=== PATIENT | male | born 1985 | race Caucasian/White ===

== ENCOUNTER 2022-02-11 09:59 | Inpatient (IN) | payer BC ==
--- NOTE | 2022-02-11 10:29 | ED ---
SOB HPI - General Chief Complaint: Shortness of Breath Stated Complaint: SOB Time Seen by Provider: 02/11/22 10:17 Source: patient, RN notes reviewed Mode of arrival: ambulatory Limitations: no limitations - History of Present Illness Initial Comments: This is a 36-year-old male who presents to the emergency department for shortness of breath. Symptoms have been present for the last 2-3 weeks. States that this has been occurring intermittently. Symptoms are worse with exertion. Also reports a cough and fevers at 102 Fahrenheit. Reports pain in the epigastric region. Denies any history of similar symptoms in the past. He also denies any sick contacts. He has no history of respiratory illnesses such as asthma or COPD and he denies any smoking history. Denies any sore throat, palpitations, abdominal pain, nausea, vomiting, diarr hea, back pain, or headaches. MD Complaint: shortness of breath, cough, chest pain Onset/Timin -: week(s) - Related Data Home Medications Medication Instructions Recorded Confirmed No Known Home Medications 02/11/22 02/11/22 Allergies Allergy/AdvReac Type Severity Reaction Status Date / Time No Known Allergies Allergy Verified 02/11/22 11:13 Review of Systems ROS Statement: Those systems with pertinent positive or pertinent negative responses have been documented in the HPI. ROS Other: All systems not noted in ROS Statement are negative. Past Medical History Past Medical History: No Reported History History of Any Multi-Drug Resistant Organisms: None Reported Past Surgical History: No Surgical Hx Reported Past Psychological History: No Psychological Hx Reported Smoking Status: Vaper Past Alcohol Use History: Occasional Past Drug Use History: Marijuana General Exam Limitations: no limitations General appearance: alert, in no apparent distress Head exam: Present: atraumatic, normocephalic, normal inspection Respiratory exam: Present: normal lung sounds bilaterally. Absent: respiratory distress, wheezes, rales, rhonchi, stridor, chest wall tenderness Cardiovascular Exam: Present: normal rhythm, tachycardia GI/Abdominal exam: Present: soft, normal bowel sounds. Absent: distended, tenderness, guarding, rebound, rigid Neurological exam: Present: alert, oriented X3, CN II-XII intact Psychiatric exam: Present: normal affect, normal mood Skin exam: Present: warm, dry, intact, normal color. Absent: rash Course Vital Signs 02/11/22 02/11/22 10:11 11:19 Temperature 98 F Pulse Rate 107 H 48 L Respiratory 20 16 Rate Blood Pressure 118/95 103/56 O2 Sat by Pulse 99 95 Oximetry Medical Decision Making - Medical Decision Making This is a 36-year-old male who presents to the emergency department for shortness of breath. Lab work reveals an elevated d-dimer, elevated troponin, elevated BNP, and elevated liver enzymes. Chest x-ray obtained, and on my interpretation there is no evidence of localized consolidations or infiltrates. Due to the elevated d-dimer, CTA of the chest was subsequently obtained. My interpretation of the CT angiogram reveals bilateral pulmonary emboli. The radiologist is not able to visualize any CT evidence of right heart strain. They do also make note of borderline cardiomegaly and possible developing CHF/pulmonary vascular congestion. There is also questionable thinning of the apical inferior right ventricular wall and nodularity that may represent promine nt trabeculae carneae. Patient was started on high intensity heparin protocol and admitted to medicine with cardiology, pulmonology, and vascular consult. This case was discussed in detail with the attending ED physician. Presentation, findings, and treatment plan discussed in detail as well. - Lab Data Result diagrams: 02/11/22 11:16 02/11/22 11:16 Lab Results 02/11/22 02/11/22 02/11/22 Range/Units 11:16 11:16 11:16 WBC 9.4 (3.8-10.6) k/uL RBC 4.52 (4.30-5.90) m/uL Hgb 14.3 (13.0-17.5) gm/dL Hct 41.9 (39.0-53.0) % MCV 92.8 (80.0-100.0) fL MCH 31.6 (25.0-35.0) pg MCHC 34.0 (31.0-37.0) g/dL RDW 13.5 (11.5-15.5) % Plt Count 214 (150-450) k/uL MPV 9.8 Neutrophils % 73 % Lymphocytes % 18 % Monocytes % 6 % Eosinophils % 1 % Basophils % 1 % Neutrophils # 6.9 (1.3-7.7) k/uL Lymphocytes # 1.7 (1.0-4.8) k/uL Monocytes # 0.5 (0-1.0) k/uL Eosinophils # 0.1 (0-0.7) k/uL Basophils # 0.1 (0-0.2) k/uL PT 13.7 H (9.0-12.0) sec INR 1.4 H (<1.2) APTT 23.0 (22.0-30.0) sec D-Dimer 9.41 H (<0.60) mg/L FEU Sodium 135 L (137-145) mmol/L Potassium 4.5 (3.5-5.1) mmol/L Chloride 109 H (98-107) mmol/L Carbon Dioxide 16 L (22-30) mmol/L Anion Gap 10 mmol/L BUN 21 H (9-20) mg/dL Creatinine 1.18 (0.66-1.25) mg/dL Est GFR (CKD-EPI)AfAm >90 (>60 ml/min/1.73 sqM) Est GFR (CKD-EPI)NonAf 80 (>60 ml/min/1.73 sqM) Glucose 99 (74-99) mg/dL Plasma Lactic Acid Arturo (0.7-2.0) mmol/L Calcium 9.0 (8.4-10.2) mg/dL Total Bilirubin 1.1 (0.2-1.3) mg/dL AST 230 H (17-59) U/L ALT 409 H (4-49) U/L Alkaline Phosphatase 78 (38-126) U/L Troponin I (0.000-0.034) ng/mL NT-Pro-B Natriuret Pep pg/mL Total Protein 6.4 (6.3-8.2) g/dL Albumin 3.5 (3.5-5.0) g/dL Coronavirus (PCR) (Not Detectd) Influenza Type A RNA (Not Detectd) Influenza Type B (PCR) (Not Detectd) 02/11/22 02/11/22 02/11/22 Range/Units 11:16 11:16 11:16 WBC (3.8-10.6) k/uL RBC (4.30-5.90) m/uL Hgb (13.0-17.5) gm/dL Hct (39.0-53.0) % MCV (80.0-100.0) fL MCH (25.0-35.0) pg MCHC (31.0-37.0) g/dL RDW (11.5-15.5) % Plt Count (150-450) k/uL MPV Neutrophils % % Lymphocytes % % Monocytes % % Eosinophils % % Basophils % % Neutrophils # (1.3-7.7) k/uL Lymphocytes # (1.0-4.8) k/uL Monocytes # (0-1.0) k/uL Eosinophils # (0-0.7) k/uL Basophils # (0-0.2) k/uL PT (9.0-12.0) sec INR (<1.2) APTT (22.0-30.0) sec D-Dimer (<0.60) mg/L FEU Sodium (137-145) mmol/L Potassium (3.5-5.1) mmol/L Chloride (98-107) mmol/L Carbon Dioxide (22-30) mmol/L Anion Gap mmol/L BUN (9-20) mg/dL Creatinine (0.66-1.25) mg/dL Est GFR (CKD-EPI)AfAm (>60 ml/min/1.73 sqM) Est GFR (CKD-EPI)NonAf (>60 ml/min/1.73 sqM) Glucose (74-99) mg/dL Plasma Lactic Acid Arturo 1.0 (0.7-2.0) mmol/L Calcium (8.4-10.2) mg/dL Total Bilirubin (0.2-1.3) mg/dL AST (17-59) U/L ALT (4-49) U/L Alkaline Phosphatase (38-126) U/L Troponin I 0.044 H* (0.000-0.034) ng/mL NT-Pro-B Natriuret Pep pg/mL Total Protein (6.3-8.2) g/dL Albumin (3.5-5.0) g/dL Coronavirus (PCR) (Not Detectd) Influenza Type A RNA Not Detected (Not Detectd) Influenza Type B (PCR) Not Detected (Not Detectd) 02/11/22 02/11/22 Range/Units 11:16 13:11 WBC (3.8-10.6) k/uL RBC (4.30-5.90) m/uL Hgb (13.0-17.5) gm/dL Hct (39.0-53.0) % MCV (80.0-100.0) fL MCH (25.0-35.0) pg MCHC (31.0-37.0) g/dL RDW (11.5-15.5) % Plt Count (150-450) k/uL MPV Neutrophils % % Lymphocytes % % Monocytes % % Eosinophils % % Basophils % % Neutrophils # (1.3-7.7) k/uL Lymphocytes # (1.0-4.8) k/uL Monocytes # (0-1.0) k/uL Eosinophils # (0-0.7) k/uL Basophils # (0-0.2) k/uL PT (9.0-12.0) sec INR (<1.2) APTT (22.0-30.0) sec D-Dimer (<0.60) mg/L FEU Sodium (137-145) mmol/L Potassium (3.5-5.1) mmol/L Chloride (98-107) mmol/L Carbon Dioxide (22-30) mmol/L Anion Gap mmol/L BUN (9-20) mg/dL Creatinine (0.66-1.25) mg/dL Est GFR (CKD-EPI)AfAm (>60 ml/min/1.73 sqM) Est GFR (CKD-EPI)NonAf (>60 ml/min/1.73 sqM) Glucose (74-99) mg/dL Plasma Lactic Acid Arturo (0.7-2.0) mmol/L Calcium (8.4-10.2) mg/dL Total Bilirubin (0.2-1.3) mg/dL AST (17-59) U/L ALT (4-49) U/L Alkaline Phosphatase (38-126) U/L Troponin I (0.000-0.034) ng/mL NT-Pro-B Natriuret Pep 9700 pg/mL Total Protein (6.3-8.2) g/dL Albumin (3.5-5.0) g/dL Coronavirus (PCR) Not Detected (Not Detectd) Influenza Type A RNA (Not Detectd) Influenza Type B (PCR) (Not Detectd) - EKG Data -: EKG Interpreted by Me EKG Comments: Sinus tachycardia with occasional PVCs, normal axis, ventricular rate 102 bpm, W[place] interval 181 ms, QRS duration 95 ms, QTC 425 ms. EKG interpreted by myself and attending ED physician, Dr. Valencia. - Radiology Data Radiology results: report reviewed, image reviewed Disposition Clinical Impression: Bilateral pulmonary embolism Disposition: ADMITTED IP TO THIS HOSP
[2022-02-11 11:30] LABS: Basophils # (A) 0.1 k/uL (0-0.2); Basophils % (A) 1 %; Eosinophils # (A) 0.1 k/uL (0-0.7); Eosinophils % (A) 1 %; HCT 41.9 % (39.0-53.0); HGB 14.3 gm/dL (13.0-17.5); Lymphocytes # (A) 1.7 k/uL (1.0-4.8); Lymphocytes % (A) 18 %; MCH 31.6 pg (25.0-35.0); MCV 92.8 fL (80.0-100.0); Mean Platelet Volume 9.8; Monocytes # (A) 0.5 k/uL (0-1.0); Monocytes % (A) 6 %; Neutrophils # (A) 6.9 k/uL (1.3-7.7); Neutrophils % (A) 73 %; Platelet Count 214 k/uL (150-450); RBC 4.52 m/uL (4.30-5.90); RDW 13.5 % (11.5-15.5); WBC 9.4 k/uL (3.8-10.6)
[2022-02-11 11:37] LABS: ALT 409 U/L (4-49); AST 230 U/L (17-59); African American GFR (CKD) >90 (>60 ml/min/1.73 sqM); Albumin 3.5 g/dL (3.5-5.0); Alkaline Phosphatase 78 U/L (38-126); Anion Gap 10 mmol/L; Blood Urea Nitrogen 21 mg/dL (9-20); Carbon Dioxide 16 mmol/L (22-30); Chloride 109 mmol/L (98-107); Glucose 99 mg/dL (74-99); Non-African American GFR(CKD) 80 (>60 ml/min/1.73 sqM); Potassium 4.5 mmol/L (3.5-5.1); Sodium 135 mmol/L (137-145); Total Bilirubin 1.1 mg/dL (0.2-1.3); Total Protein 6.4 g/dL (6.3-8.2)
--- NOTE | 2022-02-11 11:51 | XR ---
EXAMINATION TYPE: XR chest 2V DATE OF EXAM: 02/11/2022 COMPARISON: NONE HISTORY: Chest pain TECHNIQUE: Frontal and lateral views of the chest are obtained. FINDINGS: There is no focal air space opacity. No evidence for pneumothorax. No pleural effusion. The cardiac silhouette size is within normal limits. The osseous structures are grossly intact. IMPRESSION: 1. No acute cardiopulmonary process.
[2022-02-11 12:06] LABS: INR 1.4 (<1.2); Prothrombin Time 13.7 sec (9.0-12.0)
--- NOTE | 2022-02-11 13:15 | CT ---
EXAMINATION TYPE: CT chest angio for PE DATE OF EXAM: 02/11/2022 COMPARISON: Radiograph same day HISTORY: 36-year-old male chest pain, elevated d-dimer and troponin, SOB TECHNIQUE: Contiguous axial scanning of the chest performed with IV Contrast, patient injected with 1 00 mL of Isovue 300. Coronal/sagittal MIP reconstructions performed. CT DLP: 522.1 mGycm Automated exposure control for dose reduction was used. FINDINGS: Heart borderline in size. Prominent reflux of contrast into the hepatic veins. No flattening of the i nterventricular septum. Possible thinning of the apical inferior right ventricular wall. Nodularity h ere could represent prominent trabeculae carneae. Couple focal areas measuring 3.3 cm and 1.7 cm are noted on axial image 125. Aorta normal caliber with bovine configuration to the aortic arch. Prominent 1.5 cm right hilar lymph node. Otherwise, no thoracic lymphadenopathy. There is satisfactory opacification of the pulmonary arterial system. Emboli are present within dista l segmental and subsegmental branches of the basilar left lower lobe, axial image 91 through 115. Similar emboli in the right lower lobe. No large central or lobar branch pulmonary embolus. There appears to be a trace effusion on the right. Septal lines and mild groundglass in the lower [place]. Minimal scattered septal lines in the upper lungs as well. Nonspecific 5 mm medial right upper lobe pulmonary nodule, axial image 29 should be reassessed at [facility] low-up. Mild central interstitial thickening is noted. Irregular nodular density measuring 1.2 cm ant erior right midlung, axial image 84 should be reassessed at follow-up. Visualized upper abdomen shows no gross abnormality. Bones: Mild degenerative disc disease scattered throughout. No osseous destructive process. IMPRESSION: 1. EXAM POSITIVE FOR BILATERAL PULMONARY EMBOLI TO THE LOWER LOBES. THIS INVOLVES THE BASILAR DISTAL SEGMENTAL AND SUBSEGMENTAL BRANCHES, MILD OVERALL BURDEN. NO CT EVIDENCE FOR RIGHT HEART STRAIN. 2. HOWEVER, THERE IS BORDERLINE CARDIOMEGALY AND REFLUX OF CONTRAST INTO THE HEPATIC VEINS. CORRELATE FOR ELEVATED CARDIAC PRESSURES. 3. GIVEN SCATTERED SEPTAL LINES, CENTRAL INTERSTITIAL THICKENING, AND MILD BIBASILAR GROUNDGLASS WITH TRACE RIGHT EFFUSION, CORRELATE FOR DEVELOPING CHF/PULMONARY VASCULAR CONGESTION. 4. QUESTIONABLE THINNING OF THE APICAL INFERIOR RIGHT VENTRICULAR WALL. QUERY ANY HISTORY OF PRIOR IN FARCT. THERE IS SOME NODULARITY HERE MEASURING UP TO 3.3 CM THAT COULD REPRESENT PROMINENT TRABECULAE CARNEAE. IF THERE IS A HISTORY OF PRIOR INFERIOR WALL INFARCT, SOME INTRAVENTRICULAR THROMBUS IS ALS O A CONSIDERATION. Findings called to Dr. Fabian in the ER at 1:10 PM.
[2022-02-11] MEDS ORDERED: HEPARIN SODIUM 1,000 UN/ML (10ML VL) IV ONE (13:17)
[2022-02-11] MEDS ORDERED: HEPARIN SODIUM 1,000 UN/ML (10ML VL) IV PRN (13:17)
[2022-02-11] MEDS: HEPARIN SOD,PORK IN 0.45% NACL 25,000 UNIT in 0.45% NACL 1 250ML.BAG IV SCH (13:43)
[2022-02-11] MEDS ORDERED: IBUPROFEN 400 MG TAB PO PRN (13:46)
[2022-02-11] MEDS ORDERED: ONDANSETRON 4 MG/2 ML VIAL IVP PRN (13:46)
[2022-02-11] MEDS ORDERED: HYDROcodone/APAP 5-325MG 1 EACH TAB PO PRN (13:46)
[2022-02-11] MEDS ORDERED: oxyCODONE-APAP 5-325MG 1 EACH TAB PO PRN (13:46)
[2022-02-11] MEDS ORDERED: NALOXONE 0.4 MG/ML 1 ML VIAL IV PRN (13:46)
--- NOTE | 2022-02-11 15:09 | US ---
EXAMINATION TYPE: US venous doppler duplex LE BI DATE OF EXAM: 02/11/2022 3:01 PM COMPARISON: NONE CLINICAL HISTORY: leg swelling. SIDE PERFORMED: Bilateral TECHNIQUE: The lower extremity deep venous system is examined utilizing real time linear array sonog nikhil with graded compression, doppler sonography and color-flow sonography. VESSELS IMAGED: Common Femoral Vein Deep Femoral Vein Greater Saphenous Vein * Femoral Vein Popliteal Vein Small Saphenous Vein * Proximal Calf Veins (* superficial vessels) Right Leg: Negative for DVT Left Leg: Negative for DVT IMPRESSION: No evidence for DVT at this time.
--- NOTE | 2022-02-11 15:14 | US ---
EXAMINATION TYPE: US liver DATE OF EXAM: 02/11/2022 COMPARISON: NONE CLINICAL HISTORY: 36-year-old male Elevated liver enzymes TECHNIQUE: Multiple sonographic images of the right upper quadrant are obtained. FINDINGS: EXAM MEASUREMENTS: Liver Length: 19.7 cm Gallbladder Wall: 0.55 cm CBD: 0.17 cm Right Kidney: 9.5 x 3.8 x 4.4 cm Pancreas: Obscured by bowel gas. Only a small portion of the pancreatic neck is seen. Liver: Enlarged right lobe. Overall homogeneous appearance. Gallbladder: Thickened wall. No abnormal distention, surrounding fluid, or shadowing calculi are see n. Evidence for sonographic Ledezma's sign: No CBD: wnl Right Kidney: wnl IMPRESSION: 1. Mild hepatomegaly measuring 19.7 cm. However, overall ultrasound echotexture of the liver is norah l. If the patient has developing CHF, consider the possibility of some underlying congestive hepatopa thy. 2. Nonspecific gallbladder wall thickening. This could relate to fluid overload state or chronic chol ecystitis. 3. No biliary ductal dilatation.
--- NOTE | 2022-02-11 16:39 | P.CNPUL ---
History of Present Illness Consult date: 02/11/22 Requesting physician: Leonel Alfred Reason for consult: dyspnea, chest pain Chief complaint: Shortness of breath, chest pain History of present illness: This is a very pleasant 36-year-old male patient with no significant past medical history. No home medications. He presented here to the emergency room today with a 3 to four-week history of not feeling well. He had been noticing increasing shortness of breath and sharp epigastric and chest pain. He's developed a cough. No hemoptysis. 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 Chest x-ray revealed no acute cardiopulmonary process. CT angiogram is positive for bilateral pulmonary emboli to the lower lobes. This involves the basilar distal segmental and subsegmental branches. Mild overall burden. No CT evidence for right heart strain. There is borderline cardiomegaly and reflux of contrast into the hepatic veins. Correlate for elevated cardiac pressures. Given scattered septal lines, central interstitial thickening and mild bibasilar groundglass with trace right effusion, correlate for developing CHF/pulmonary vascular congestion. Questionable thinning of the apical inferior right ventricular wall. Possible prior infarct. Some nodularity measuring up to 3.3 cm that could represent prominent trabeculae carnea. Some intraventricular thrombus is also a consideration. Dopplers of the bilateral lower extremity were negative for DVT. Ultrasound of the liver revealed mild hepatomegaly. However, overall ultrasound echotexture of the liver is normal. White count 9.4. Hemoglobin 14.3. D-dimer 9.41. INR 1.4. Sodium 135. Potassium 4.5. BUN 21. Creatinine 1.18. AST 230. ALT 409. Troponin 0.044. ProBNP 9700. Pastor virus and influenza screen negative. Urgent echocardiogram had been ordered. Cardiology consult had been placed. Pulmonary was consulted as well. The patient is seen today in the emergency department. Currently resting comfortably on a stretcher. He is maintaining O2 saturations in the 90s on room air. He is slightly tachycardic. Hemodynamically stable. Denies any hemoptysis. Denies any injury. Denies any long travel. Does have a family history of PE and his father. He's been initiated on a heparin drip. Review of Systems REVIEW OF SYSTEMS: CONSTITUTIONAL: Denies any recent significant weight loss or weight gain. EYES: Denies change in vision. EARS, NOSE, MOUTH, THROAT: Denies headaches, denies sore throat. CARDIOVASCULAR: Positive for chest pain, no palpitations or syncopal episodes. RESPIRATORY: Positive for shortness of breath, no cough, congestion or hemop tysis. GASTROINTESTINAL: Denies change in appetite, denies abdominal pain GENITOURINARY: Denies hematuria, denies infections. MUSKULOSKELETAL: Denies pain, denies swelling. INTEGUMENTARY: Denies rash, denies eczema. NEUROLOGICAL: Denies recent memory loss, no recent seizure activity. PSYCHIATRIC: Denies anxiety, denies depression. HEMATOLOGIC/LYMPHATIC: Denies anemia, denies enlarged lymph nodes. Past Medical History Past Medical History: No Reported History History of Any Multi-Drug Resistant Organisms: None Reported Past Surgical History: No Surgical Hx Reported Past Psychological History: No Psychological Hx Reported Smoking Status: Vaper Past Alcohol Use History: Occasional Past Drug Use History: Marijuana Medications and Allergies Home Medications Medication Instructions Recorded Confirmed Type No Known Home Medications 02/11/22 02/11/22 History Allergies Allergy/AdvReac Type Severity Reaction Status Date / Time No Known Allergies Allergy Verified 02/11/22 11:13 Physical Exam Vitals: Vital Signs Temp Pulse Resp BP Pulse Ox 02/11/22 14:58 78 18 114/94 96 02/11/22 12:58 107 H 18 97 02/11/22 11:19 48 L 16 103/56 95 02/11/22 10:11 98 F 107 H 20 118/95 99 Intake and Output 02/11/22 02/11/22 02/11/22 06:59 14:59 22:59 Other: Weight 102.058 kg GENERAL EXAM: Alert, very pleasant 36-year-old male patient, on room air, fairly comfortable in no apparent distress. HEAD: Normocephalic. EYES: Normal reaction of pupils, equal size. NOSE: Clear with pink turbinates. THROAT: No erythema or exudates. NECK: No masses, no JVD. CHEST: No chest wall deformity. LUNGS: Equal air entry with no crackles, wheeze, rhonchi or dullness. CVS: S1 and S2 normal with no audible murmur, regular rhythm. ABDOMEN: No hepatosplenomegaly, normal bowel sounds, no guarding or rigidity. SPINE: No scoliosis or deformity SKIN: No rashes CENTRAL NERVOUS SYSTEM: No focal deficits, tone is normal in all 4 extremities. EXTREMITIES: There is no peripheral edema. No clubbing, no cyanosis. Peripheral pulses are intact. Results - Laboratory Findings CBC and BMP: 02/11/22 11:16 02/11/22 11:16 PT/INR, D-dimer PT 13.7 sec (9.0-12.0) H 02/11/22 11:16 INR 1.4 (<1.2) H 02/11/22 11:16 D-Dimer 9.41 mg/L FEU (<0.60) H 02/11/22 11:16 Abnormal lab findings: Abnormal Labs 02/11/22 02/11/22 02/11/22 11:16 11:16 11:16 PT 13.7 H INR 1.4 H D-Dimer 9.41 H Sodium 135 L Chloride 109 H Carbon Dioxide 16 L BUN 21 H AST 230 H ALT 409 H Troponin I 0.044 H* - Diagnostic Findings Chest x-ray: image reviewed CT scan - chest: image reviewed Assessment and Plan Assessment: Shortness of breath and chest pain secondary to bilateral pulmonary emboli. Non-provoked. Currently on a heparin drip. Computed tomography scan reveals bilateral pulmonary emboli to the lower lobes involving the basilar distal segmental and subsegmental branches. Mild overall burden. No evidence of right heart strain and CT. There is borderline cardiomegaly reflux of contrast and the hepatic veins. Correlate for elevated cardiac pressures. Scattered septal lines, central interstitial thickening and mild by basilar groundglass with trace right effusion, correlate for developing CHF/pulmonary vascular conges tion. Questionable thickening of the apical inferior right ventricular wall. Denies history of prior infarct. Some intraventricular thrombus is also a consideration. Doppler of lower extremities negative for DVT. Liver ultrasound with possible underlying congestive hepatopathy. Echocardiogram pending. Have mild troponin leak. ProBNP 9700. Family history of PE History of marijuana use, vaping Plan: The patient was seen and evaluated CAT scan, chest x-ray, medications and labs reviewed Continue on heparin drip Stat consult to cardiology, echo pending We will continue to follow and make further recommendations based on his clinical status I have personally seen and examined the patient, performed the documentation and the assessment and plan as written. Number of minutes spent on the visit: 20.
--- NOTE | 2022-02-11 18:14 | P.HPIM ---
History of Present Illness This is a pleasant 56 years old male with no significant past medical history Presents to day because of shortness of breath with some mild central chest pain, he has some occasional cough but no hemoptysis He denies any leg pain or swelling, he denies any other symptoms like nausea vomiting diarrhea, no abdominal pain, no urinary complaints. No headache or weakness or numbness. Patient denies cigarette smoking or alcohol, uses marijuana at times. As the patient if he has any family history of blood diseases and he denies. He was mildly tachypneic, saturating 95% on room air, resolved Vitas looks stable. CBC is unremarkable, d-dimer elevated 9.4, BMP is unremarkable. Has elevated liver enzymes to 30 AST and 409 ALT. Bilirubin is normal 1.1. Troponin elevated 0.04. ProBNP is 9700. Pastor virus and influenza virus is our and detected. CTA of the chest: Bilateral pulmonary emboli, no significant ST-T changes. EKG showing sinus tachycardia and 102, QTC which is 425 Review of Systems Review of systems CONSTITUTIONAL: No fever, no malaise, no fatigue. HEENT: No recent visual problems or hearing problems. Denied any sore throat. CARDIOVASCULAR: No orthopnea, PND, no palpitations, no syncope. PULMONARY: No chest wall tenderness, no hemoptysis. GASTROINTESTINAL: No diarrhea, no nausea, no vomiting, no abdominal pain. Normoactive bowel sounds. NEUROLOGICAL: No headaches, no weakness, no numbness. HEMATOLOGICAL: Denies any bleeding or petechiae. GENITOURINARY: Denies any burning micturition, frequency, or urgency. MUSCULOSKELETAL/RHEUMATOLOGICAL: Denies any joint pain, swelling, or any muscle pain. ENDOCRINE: Denies any polyuria or polydipsia. Past Medical History Past Medical History: No Reported History History of Any Multi-Drug Resistant Organisms: None Reported Past Surgical History: No Surgical Hx Reported Past Psychological History: No Psychological Hx Reported Smoking Status: Vaper Past Alcohol Use History: Occasional Past Drug Use History: Marijuana Medications and Allergies Home Medications Medication Instructions Recorded Confirmed Type No Known Home Medications 02/11/22 02/11/22 History Allergies Allergy/AdvReac Type Severity Reaction Status Date / Time No Known Allergies Allergy Verified 02/11/22 11:13 Physical Exam Vitals: Vital Signs Temp Pulse Resp BP Pulse Ox 02/11/22 11:19 48 L 16 103/56 95 02/11/22 10:11 98 F 107 H 20 118/95 99 Intake and Output 02/10/22 02/11/22 02/11/22 22:59 06:59 14:59 Other: Weight 102.058 kg GENERAL: The patient is alert and oriented x3, not in any acute distress. Well developed, well nourished. HEENT: Pupils are round and equally reacting to light. EOMI. No scleral icterus. No conjunctival pallor. Normocephalic, atraumatic. No pharyngeal erythema. No thyromegaly. CARDIOVASCULAR: S1 and S2 present. No murmurs, rubs, or gallops. PULMONARY: Chest is clear to auscultation, no wheezing or crackles. ABDOMEN: Soft, nontender, nondistended, normoactive bowel sounds. No palpable organomegaly. MUSCULOSKELETAL: No joint swelling or deformity. EXTREMITIES: No cyanosis, clubbing, or pedal edema. NEUROLOGICAL: Gross neurological examination did not reveal any focal deficits. SKIN: No rashes. no petechiae. Results CBC & Chem 7: 02/11/22 11:16 02/11/22 11:16 Labs: Abnormal Lab Results - Last 24 Hours (Table) 02/11/22 02/11/22 02/11/22 Range/Units 11:16 11:16 11:16 PT 13.7 H (9.0-12.0) sec INR 1.4 H (<1.2) D-Dimer 9.41 H (<0.60) mg/L FEU Sodium 135 L (137-145) mmol/L Chloride 109 H (98-107) mmol/L Carbon Dioxide 16 L (22-30) mmol/L BUN 21 H (9-20) mg/dL AST 230 H (17-59) U/L ALT 409 H (4-49) U/L Troponin I 0.044 H* (0.000-0.034) ng/mL Assessment and Plan Assessment: Bilateral pulmonary embolism Elevated troponin Transaminitis Mildly elevated troponin Plan: Continue with heparin drip Check ultrasound of the legs Check echocardiogram Vascular surgery, cardiology and pulmonary consult check liver ultrasound and hepatitis panel Labs and medication were reviewed.. Continue same treatment. Continue with symptomatic treatment. Resume home medication. Monitor labs and vitals. DVT and GI prophylaxis. Further recommendations as per clinical course of the patient DVT prophylaxis: heparin GI Prophylaxis: Pepcid Prognosis is guarded
[2022-02-11] MEDS ORDERED: FAMOTIDINE 20 MG/2 ML VIAL IV SCH (21:00)
[2022-02-11] MEDS: FAMOTIDINE 20 MG TAB PO SCH (21:04)
[2022-02-12] MEDS: HEPARIN SOD,PORK IN 0.45% NACL 25,000 UNIT in 0.45% NACL 1 250ML.BAG IV SCH ×2 (03:40→20:27)
--- NOTE | 2022-02-12 06:05 | CONS ---
CONSULTATION CHIEF COMPLAINT: Shortness of breath. HISTORY OF PRESENT ILLNESS: This is a 36-year-old gentleman, who presents to hospital with progressively worsening shortness of breath for the last 3 weeks and pleuritic chest pain for the last 1 day. He underwent evaluation and a CT scan showed bilateral pulmonary embolism without any evidence of RV strain. His coronavirus test is negative. BNP is elevated, D-dimer of course is elevated at 9.4. At the time of my evaluation, the patient is comfortable at rest, currently on IV heparin, tachycardic with some PVCs, but stable hemodynamically. PAST MEDICAL HISTORY: Negative for hypertension, diabetes, dyslipidemia. MEDICATIONS: None. ALLERGIES: None. FAMILY HISTORY: Negative for premature coronary artery disease. SOCIAL HISTORY: Negative for current smoking, EtOH abuse, or drug abuse. REVIEW OF SYSTEMS: HEENT: Unremarkable. CARDIAC: As described above. RESPIRATORY: As described above. GI: Negative. GENITOURINARY: Negative. ALLERGY/IMMUNOLOGY: Negative. SKIN: Negative. MUSCULOSKELETAL: Significant for arthritis. PSYCHOSOCIAL: Negative. DERM: Negative. CONSTITUTIONAL: Negative. ONCOLOGICAL: Negative. MOTION PICTURE ACTOR: Negative. PHYSICAL EXAMINATION: GENERAL: Comfortable at rest. VITAL SIGNS: Heart rate is 110 beats per minute, blood pressure is 130/90, respiratory rate is 18, O2 saturation is 98% on room air. NECK: There is no jugular venous distention. Carotid upstroke is normal. There is no bruit. CHEST: Reveals diminished air entry at the bases. HEART: Reveals first and second heart sounds. No gallop. No murmur. ABDOMEN: Soft, nontender. EXTREMITIES: Did not reveal any edema. Peripheral pulses are felt. ASSESSMENT: Shortness of breath secondary to bilateral pulmonary embolism. PLAN: The patient does not have any evidence of DVT, this is unprovoked thromboembolic event. His father had DVT following the surgery. We will continue heparin and switch him to Eliquis. I will obtain a 2D echo to assess the right ventricular abnormality noted on the CAT scan. MMODL / IJN: [id number] /
[2022-02-12 06:33] LABS: Basophils # (A) 0.1 k/uL (0-0.2); Basophils % (A) 1 %; Eosinophils # (A) 0.1 k/uL (0-0.7); Eosinophils % (A) 1 %; HCT 42.1 % (39.0-53.0); HGB 13.6 gm/dL (13.0-17.5); Hypochromasia Slight; Lymphocytes # (A) 2.3 k/uL (1.0-4.8); Lymphocytes % (A) 22 %; MCH 30.4 pg (25.0-35.0); MCHC 32.2 g/dL (31.0-37.0); MCV 94.2 fL (80.0-100.0); Mean Platelet Volume 9.4; Monocytes # (A) 0.7 k/uL (0-1.0); Monocytes % (A) 7 %; Neutrophils % (A) 67 %; Platelet Count 259 k/uL (150-450); RBC 4.47 m/uL (4.30-5.90); RDW 13.3 % (11.5-15.5); WBC 10.4 k/uL (3.8-10.6)
[2022-02-12 07:06] LABS: ALT 413 U/L (4-49); AST 264 U/L (17-59); African American GFR (CKD) >90 (>60 ml/min/1.73 sqM); Albumin 3.3 g/dL (3.5-5.0); Alkaline Phosphatase 85 U/L (38-126); Anion Gap 8 mmol/L; Bilirubin, Delta 0.5 mg/dL (0.0-0.2); Bilirubin,Unconjugated 0.7 mg/dL (0.0-1.1); Blood Urea Nitrogen 19 mg/dL (9-20); Calcium 8.4 mg/dL (8.4-10.2); Carbon Dioxide 18 mmol/L (22-30); Chloride 105 mmol/L (98-107); Glucose 105 mg/dL (74-99); Non-African American GFR(CKD) 79 (>60 ml/min/1.73 sqM); Potassium 4.4 mmol/L (3.5-5.1); Sodium 131 mmol/L (137-145); Total Bilirubin 1.2 mg/dL (0.2-1.3)
[2022-02-12] MEDS: FAMOTIDINE 20 MG TAB PO SCH ×2 (09:31→20:27)
--- NOTE | 2022-02-12 10:41 | CA ---
Transthoracic Echo Report Name: Aaron Guo Age: 36 Gender: M : 1985 Exam Date: 02/12/2022 08:34 Exam Location: [facility] Ht (in): 75 Wt (lb): 225 Ordering Physician: Jessica Henry Attending/Referring Phys: Insurance Licensing Supervisor Shannon Burgos RDCS Procedure CPT: Indications: PE, rule out RV strain Cardiac Hx: Technical Quality: Good Contrast 1: Total Dose (mL): Contrast 2: Total Dose (mL): MEASUREMENTS (Male / Female) Normal Values 2D ECHO LV Diastolic Diameter PLAX 6.4 cm 4.2 - 5.9 / 3.9 - 5.3 cm LV Systolic Diameter PLAX 5.8 cm IVS Diastolic Thickness 0.9 cm 0.6 - 1.0 / 0.6 - 0.9 cm LVPW Diastolic Thickness 1.2 cm 0.6 - 1.0 / 0.6 - 0.9 cm LV Relative Wall Thickness 0.3 RV Internal Dim ED PLAX 5.0 cm LA Systolic Diameter LX 4.4 cm 3.0 - 4.0 / 2.7 - 3.8 cm LA Volume 78.9 cm??? 18 - 58 / 22 - 52 cm??? M-MODE Aortic Root Diameter MM 3.2 cm MV E Point Septal Separation 1.9 cm AV Cusp Separation MM 2.1 cm DOPPLER AV Peak Velocity 61.1 cm/s AV Peak Gradient 1.5 mmHg MV Area PHT 5.2 cm??? MV Deceleration Time 132.0 ms TR Peak Velocity 263.8 cm/s TR Peak Gradient 27.8 mmHg Right Ventricular Systolic Press 40.0 mmHg FINDINGS Left Ventricle Mildly increased left ventricular diastolic diameter. Left ventricular ejection fraction is estimated at 15-20 %. Left ventricular wall thickness normal. Severely reduced global left ventricular systolic function. Left ventricular apical thrombus noted. Right Ventricle Severe right ventricular dilatation. Mild pulmonary hypertension. Right ventricular systolic pressure estimated at 40 mm hg. There is right ventricular enlargement consistent with right ventricular volume overload. Moderately reduced right ventricular global systolic function. There is a filling defect in the right ventricular apex raising the possibility of thrombus Right Atrium Normal right atrial size. Left Atrium Mildly increased left atrial diameter. Moderately increased left atrial volume. Mildly increased left atrial area. No evidence for an atrial septal defect. Mitral Valve Structurally normal mitral valve. Mild mitral regurgitation. Aortic Valve Trileaflet aortic valve. No aortic valve stenosis or regurgitation. Tricuspid Valve Structurally normal tricuspid valve. Mild tricuspid regurgitation. Pulmonic Valve Pulmonic valve not well visualized. Pericardium Normal pericardium. No pericardial effusion. Aorta Normal size aortic root and proximal ascending aorta. CONCLUSIONS Enlarged left ventricle with the global decrease in contractility estimated ejection fraction of about 15% with apical thrombus. Right ventricle is also enlarged with evidence of global decrease in contractility with a filling defect in the right ventricular apex as well raising the possibility of thrombus. Valvular structures are grossly within normal limits. No pericardial effusion. 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 Zaman Previewed by: Dr. Thang Aguirre MD (Electronically Signed) Final Date: 12 February 2022 10:40
[2022-02-12 11:17] VITALS: BMI 28.1
[2022-02-12] MEDS ORDERED: LOSARTAN 25 MG TAB PO SCH (11:45)
--- NOTE | 2022-02-12 13:13 | P.PN ---
Subjective Progress Note Date: 02/12/22 Principal diagnosis: Acute pulmonary embolism This is a very pleasant 36-year-old male patient with no significant past medical history. No home medications. He presented here to the emergency room today with a 3 to four-week history of not feeling well. He had been noticing increasing shortness of breath and sharp epigastric and chest pain. He's developed a cough. No hemoptysis. He did have CoVID back in 2019 but not diagnosed recently and gets checked frequently for work in a [place] [facility]. Chest x-ray revealed no acute cardiopulmonary process. CT angiogram is positive for bilateral pulmonary emboli to the lower lobes. This involves the basilar distal segmental and subsegmental branches. Mild overall burden. No CT evidence for right heart strain. There is borderline cardiomegaly and reflux of contrast into the hepatic veins. Correlate for elevated cardiac pressures. Given scattered septal lines, central interstitial thickening and mild bibasilar groundglass with trace right effusion, correlate for developing CHF/pulmonary vascular congestion. Questionable thinning of the apical inferior right ventricular wall. Possible prior infarct. Some nodularity measuring up to 3.3 cm that could represent prominent trabeculae carnea. Some intraventricular thrombus is also a consideration. Dopplers of the bilateral lower extremity were negative for DVT. Ultrasound of the liver revealed mild hepatomegaly. However, overall ultrasound echotexture of the liver is normal. White count 9.4. Hemoglobin 14.3. D-dimer 9.41. INR 1.4. Sodium 135. Potassium 4.5. BUN 21. Creatinine 1.18. AST 230. ALT 409. Troponin 0.044. ProBNP 9700. Pastor virus and influenza screen negative. Urgent echocardiogram had been ordered. Cardiology consult had been placed. Pulmonary was consulted as well. The patient is seen today in the emergency department. Currently resting comfortably on a stretcher. He is maintaining O2 saturations in the 90s on room air. He is slightly tachycardic. Hemodynamically stable. Denies any hemoptysis. Denies any injury. Denies any long travel. Does have a family history of PE and his father. He's been initiated on a heparin drip. Reevaluated today on 02/12/22, patient is doing well, remains on heparin, no coug h no wheezing no shortness of breath and no chest pain. Echocardiogram showed global decrease in ejection fraction about 15% with apical thrombus, it also showed global decrease in contractility of the right ventricle raising the possibility of thrombus, severe right ventricular that agitation noted. This is being addressed by cardiology, we have consulted cardiology yesterday to evaluate for possible right ventricular strain, and whether the patient should undergo ekos thrombolysis. Clinically today the patient is better than expected. He is not in any distress. Again he remains on heparin, PTT is therapeutic. Patient has elevated BNP level of 9700 and elevated troponin of 0.044 Objective - Vital Signs Vital signs: Vital Signs Temp 98.1 F 02/12/22 09:30 Pulse 109 H 02/12/22 09:30 Resp 20 02/12/22 09:30 BP 115/89 02/12/22 09:30 Pulse Ox 98 02/12/22 09:30 FiO2 Intake & Output 02/11/22 02/12/22 02/12/22 18:59 06:59 18:59 Intake Total 307.253 236 Output Total 500 Balance -192.747 236 Weight 102.058 kg 102.058 kg 102.058 kg Intake: Intake, IV Titration 307.253 Amount Heparin Sod,Pork in 0.45% 307.253 NaCl 25,000 unit In 0.45 % NaCl 1 250ml.bag @ 18 UNITS/KG/HR 18.37 mls/hr IV .[id number] [facility] Rx#: [id number] Oral 236 Output: Urine 500 Other: Voiding Method Urinal Urinal - Exam Physical Exam: Revealed a 36-year-old white male in no distress. Head: Atraumatic normocephalic. HEENT:[Neck is supple.] [No neck masses.] [No thyromegaly.] [No JVD.] Chest: [Clear throughout, no crackles, no rhonchi, no wheezes.] Cardiac Exam: [Normal S1 and S2, no S3 gallop, no murmur.] Abdomen: [Soft, nontender, no megaly, no rebound, no guarding, normal bowel sounds.] Extremities: [No clubbing, no edema, no cyanosis.] Neurological Exam: [No focal neurologic deficit.] Alert oriented 3. Psychiatric: Normal mood, affect and normal mental status examination. Skin: No rashes - Labs CBC & Chem 7: 02/12/22 06:10 02/12/22 06:10 Labs: Abnormal Lab Results - Last 24 Hours (Table) 02/11/22 02/12/22 02/12/22 Range/Units 21:02 06:10 06:10 APTT 47.8 H 49.1 H (22.0-30.0) sec Sodium 131 L (137-145) mmol/L Carbon Dioxide 18 L (22-30) mmol/L Glucose 105 H (74-99) mg/dL Delta Bilirubin 0.5 H (0.0-0.2) mg/dL AST 264 H (17-59) U/L ALT 413 H (4-49) U/L Total Protein 6.0 L (6.3-8.2) g/dL Albumin 3.3 L (3.5-5.0) g/dL Assessment and Plan Assessment: Impression: Acute bilateral pulmonary emboli, non-provoked. Abnormal echocardiogram with severe LV dysfunction and low ejection fraction, possible apical thrombus, with elevated BNP level and mild elevated troponin. Severe right ventricular dilatation and possible thrombus, that is being addressed by cardiology on the case. Family history of thromboembolic disease History of marijuana use/Vaping Recommendation: Continue heparin Cardiology to address the abnormal echocardiogram which was noted today. We will continue to follow. Time with Patient: Less than 30
--- NOTE | 2022-02-12 13:25 | P.PN ---
Subjective This is a pleasant 56 years old male with no significant past medical history Presents to day because of shortness of breath with some mild central chest pain, he has some occasional cough but no hemoptysis He denies any leg pain or swelling, he denies any other symptoms like nausea vomiting diarrhea, no abdominal pain, no urinary complaints. No headache or weakness or numbness. Patient denies cigarette smoking or alcohol, uses marijuana at times. As the patient if he has any family history of blood diseases and he denies. He was mildly tachypneic, saturating 95% on room air, resolved Vitas looks stable. CBC is unremarkable, d-dimer elevated 9.4, BMP is unremarkable. Has elevated liver enzymes to 30 AST and 409 ALT. Bilirubin is normal 1.1. Troponin elevated 0.04. ProBNP is 9700. Pastor virus and influenza virus is our and detected. CTA of the chest: Bilateral pulmonary emboli, no significant ST-T changes. EKG showing sinus tachycardia and 102, QTC which is 425 Objective - Vital Signs Vital signs: Vital Signs Temp 98.1 F 02/12/22 09:30 Pulse 109 H 02/12/22 09:30 Resp 20 02/12/22 09:30 BP 115/89 02/12/22 09:30 Pulse Ox 98 02/12/22 09:30 FiO2 Intake & Output 02/11/22 02/12/22 02/12/22 18:59 06:59 18:59 Intake Total 307.253 236 Output Total 500 Balance -192.747 236 Weight 102.058 kg 102.058 kg 102.058 kg Intake: Intake, IV Titration 307.253 Amount Heparin Sod,Pork in 0.45% 307.253 NaCl 25,000 unit In 0.45 % NaCl 1 250ml.bag @ 18 UNITS/KG/HR 18.37 mls/hr IV .[id number] [facility] Rx#: [id number] Oral 236 Output: Urine 500 Other: Voiding Method Urinal Urinal - Exam GENERAL: The patient is alert and oriented x3, not in any acute distress. Well developed, well nourished. HEENT: Pupils are round and equally reacting to light. EOMI. No scleral icterus. No conjunctival pallor. Normocephalic, atraumatic. No pharyngeal erythema. No thyromegaly. CARDIOVASCULAR: S1 and S2 present. No murmurs, rubs, or gallops. PULMONARY: Chest is clear to auscultation, no wheezing or crackles. ABDOMEN: Soft, nontender, nondistended, normoactive bowel sounds. No palpable organomegaly. MUSCULOSKELETAL: No joint swelling or deformity. EXTREMITIES: No cyanosis, clubbing, or pedal edema. NEUROLOGICAL: Gross neurological examination did not reveal any focal deficits. SKIN: No rashes. no petechiae. - Labs CBC & Chem 7: 02/12/22 06:10 02/12/22 06:10 Labs: Abnormal Lab Results - Last 24 Hours (Table) 02/11/22 02/12/22 02/12/22 Range/Units 21:02 06:10 06:10 APTT 47.8 H 49.1 H (22.0-30.0) sec Sodium 131 L (137-145) mmol/L Carbon Dioxide 18 L (22-30) mmol/L Glucose 105 H (74-99) mg/dL Delta Bilirubin 0.5 H (0.0-0.2) mg/dL AST 264 H (17-59) U/L ALT 413 H (4-49) U/L Total Protein 6.0 L (6.3-8.2) g/dL Albumin 3.3 L (3.5-5.0) g/dL Assessment and Plan Assessment: Bilateral pulmonary embolism Acute systolic cardiomyopathy with ejection fraction 15% Elevated troponin, most likely secondary to demand/supply mismatch type II UT Transaminitis, secondary to congestive liver disease Plan: Continue with heparin drip Continue with small dose of metoprolol and losartan Vascular surgery, cardiology and pulmonary consult Cardiology input is appreciated Labs and medication were reviewed.. Continue same treatment. Continue with symptomatic treatment. Resume home medication. Monitor labs and vitals. DVT and GI prophylaxis. Further recommendations as per clinical course of the patient DVT prophylaxis: heparin GI Prophylaxis: Pepcid Prognosis is guarded
[2022-02-12] MEDS ORDERED: ALPRAZolam 0.5 MG TAB PO STA (13:33)
[2022-02-12] MEDS ORDERED: ALPRAZolam 0.25 MG TAB PO PRN (13:33)
--- NOTE | 2022-02-12 13:52 | PN ---
PROGRESS NOTE SUBJECTIVE: A 36-year-old gentleman was admitted to hospital with progressively worsening shortness of breath and had elevated D-dimer and underwent a CAT scan that showed bilateral pulmonary embolism. An echocardiogram that he had this morning has severe LV systolic dysfunction with an ejection fraction of around 50% to 20%, right ventricle appears also dilated and there is a filling defect within the right ventricular apex suggestive of a thrombus. There is also an apical thrombus within the left ventricle. Clinically, this morning the patient is doing well, does not have any symptoms. OBJECTIVE: VITAL SIGNS: Heart rate is around 108 beats per minute, blood pressure is 115/89, respiratory rate is 18. CHEST: Reveals good air entry bilaterally. HEART: Reveals first and second heart sounds. No gallop, no murmur. ABDOMEN: Soft. EXTREMITIES: Did not reveal any edema. Peripheral pulses are palpable. ASSESSMENT: 1. Acute bilateral pulmonary embolism. 2. Cardiomyopathy with biventricular dysfunction and biventricular apical thrombus, could be viral myocarditis. PLAN: I am going to add small dose of beta blockers, VENESSA inhibitors. Continue the IV heparin and see if we can transfer the patient to a tertiary care center. MMODL / IJN: [id number] /
[2022-02-12] MEDS ORDERED: METOPROLOL TARTRATE 12.5 MG TAB PO SCH (21:00)
[2022-02-13 03:18] LABS: Hepatitis B Core IgM Nonreactive (Nonreactive); Hepatitis B Surface Antigen Nonreactive (Nonreactive); Hepatitis C IgG Antibody Nonreactive (Nonreactive)
[2022-02-13] MEDS: HEPARIN SOD,PORK IN 0.45% NACL 25,000 UNIT in 0.45% NACL 1 250ML.BAG IV SCH (05:23)
[2022-02-13 07:31] LABS: Basophils # (A) 0.1 k/uL (0-0.2); Basophils % (A) 1 %; Eosinophils # (A) 0.1 k/uL (0-0.7); Eosinophils % (A) 1 %; HGB 13.5 gm/dL (13.0-17.5); Hypochromasia Slight; Lymphocytes # (A) 2.5 k/uL (1.0-4.8); Lymphocytes % (A) 23 %; MCH 30.2 pg (25.0-35.0); MCHC 32.1 g/dL (31.0-37.0); MCV 94.2 fL (80.0-100.0); Mean Platelet Volume 9.9; Monocytes # (A) 0.8 k/uL (0-1.0); Monocytes % (A) 7 %; Neutrophils # (A) 7.1 k/uL (1.3-7.7); Neutrophils % (A) 66 %; Platelet Count 239 k/uL (150-450); RBC 4.46 m/uL (4.30-5.90); RDW 13.7 % (11.5-15.5); WBC 10.8 k/uL (3.8-10.6)
[2022-02-13 07:48] LABS: African American GFR (CKD) >90 (>60 ml/min/1.73 sqM); Anion Gap 10 mmol/L; Blood Urea Nitrogen 21 mg/dL (9-20); Calcium 8.6 mg/dL (8.4-10.2); Carbon Dioxide 18 mmol/L (22-30); Chloride 102 mmol/L (98-107); Glucose 82 mg/dL (74-99); Magnesium 1.7 mg/dL (1.6-2.3); Non-African American GFR(CKD) 80 (>60 ml/min/1.73 sqM); Potassium 4.8 mmol/L (3.5-5.1); Sodium 130 mmol/L (137-145)
[2022-02-13 08:29] VITALS: RESP 18
[2022-02-13 08:30] VITALS: BP 117/93; PULSE 74; TEMP 97.6
[2022-02-13 15:15] LABS: Hepatitis A Antibody IgM Nonreactive (Nonreactive)
--- NOTE | 2022-02-14 16:27 | P.DS ---
Providers Date of admission: 02/11/22 13:46 Attending physician: Leonel Alfred MD Consults: 02/11/22 13:46 Consult Physician Urgent Consulting Provider: Iris Sandoval Consult Reason/Comments: Bilateral PE Do you want consulting provider notified?: Yes Consult Physician Urgent Consulting Provider: Kartik Zaman Consult Reason/Comments: Bilateral PE, elevated troponin, other irregular CT cardiac findings Do you want consulting provider notified?: Already Contacted Primary care physician: Stated None Hospital Course: Diagnoses: Bilateral pulmonary embolism Acute systolic cardiomyopathy with ejection fraction 15% Elevated troponin, most likely secondary to demand/supply mismatch type II RI Transaminitis, secondary to congestive liver disease Hospital course: This is a pleasant 56 years old male with no significant past medical history Presents because of shortness of breath with some mild central chest pain, he has some occasional cough but no hemoptysis. Patient was found to have bilateral PE and started on bilateral pulmonary embolism with pulmonary team consulted on the case. Patient also found to have mildly elevated troponin, proBNP elevated 9700 and elevated liver enzymes about 200-400, ultrasound of the liver: Congestive hepatopathy, echocardiogram: Ejection fraction 15-20% with suspected apical left intraventricular thrombus. Natural Sciences Manager also was following the patient recommended him and transferred to tertiary care center, patient and family agreed to be transferred and verbalized their wishes to [facility] and they declined any other Hospital blood Fil[facility] was called, I spoke with Dr. rankin of consulted from [facility] and later on with Dr. Talavera hospitalist who currently accepted the patient for transfer. Abdomen the patient was lying in bed, denies any chest pain or dyspnea, he denies any other symptoms, he has no leg edema and no basilar crepitations, mildly tachypneic. Vital stable and labs reviewed. Also patient is on heparin drip Patient was transferred in stable condition but guarded prognosis Problems and management plan were discussed with the patient and he verbalized understanding and acceptance Physical exam Gen: patient is a AAOx3, no distress CVS: S1-S2, RRR, no murmur Lungs: B/L CTA, no wheezing Abdomen: soft, no distention, no tenderness, positive bowel sounds Extremity: no leg edema or induration Time spent more than 35 minutes Plan - Discharge Summary Discharge Rx Participant: No New Discharge Prescriptions: No Action No Known Home Medications Discharge Medication List No Known Home Medications 02/11/22 [History] Follow up Appointment(s)/Referral(s): Brown Kim MD [STAFF PHYSICIAN] - 1 Week (blood disease doctor ) None,Stated [Primary Care Provider] - 1-2 days Discharge Disposition: TRANSFER TO SHORT TERM HOSP
== END 2022-02-13 10:00 | disposition short-term general hospital (02) | DRG 175 ==
LOC: EC 09:59 → 3SCARD 13:46
PROVIDERS: ADMIT Internal Medicine; ATTEND Internal Medicine
DX: I26.99 Other pulmonary embolism without acute cor pulmonale (principal); I21.A1 Myocardial infarction type 2; I42.8 Other cardiomyopathies; R00.0 Tachycardia, unspecified; R16.0 Hepatomegaly, not elsewhere classified; F17.290 Nicotine dependence, other tobacco product, uncomplicated; I08.1 Rheumatic disorders of both mitral and tricuspid valves; I49.3 Ventricular premature depolarization; I51.3 Intracardiac thrombosis, not elsewhere classified; K76.1 Chronic passive congestion of liver; Z20.822 Contact with and (suspected) exposure to COVID-19
CPT/HCPCS: 36415; 71046; 71275; 76705; 80048; 80053; 80074; 80076; 83605; 83735; 83880; 84484; 85025; 85379; 85610; 85730; 87502; 87635; 93005; 93306; 93970; 96365; 96366; 99285

== ENCOUNTER 2024-07-02 12:09 | Inpatient (IN) | payer BC ==
--- NOTE | 2024-07-02 12:47 | ED ---
URI HPI - General Chief Complaint: Upper Respiratory Infection Stated Complaint: SOB Time Seen by Provider: 07/02/24 12:16 Source: patient, RN notes reviewed Mode of arrival: ambulatory Limitations: no limitations - History of Present Illness Initial Comments: 38-year-old male presents emergency department with cough congestion shortness of breath. Patient states that he has had a productive cough over the last few days. Patient states his pulse ox was 88 to 89% this morning. Patient is concerned as he may have a clot as he had one in the past without known reason and on current Eliquis denies any leg pain or leg swelling no prior cardiac history denies current fever but states he may have had a fever. - Related Data Home Medications Medication Instructions Recorded Confirmed Apixaban [Eliquis] 5 mg PO BID 07/02/24 07/02/24 Folic Acid 1 mg PO DAILY 07/02/24 07/02/24 Furosemide [Lasix] 40 mg PO DAILY PRN 07/02/24 07/02/24 Sacubitril/Valsartan [Entresto 49 1 tab PO BID 07/02/24 07/02/24 mg-51 mg Tablet] Spironolactone [Aldactone] 25 mg PO Q2D 07/02/24 07/02/24 allopurinoL [Zyloprim] 300 mg PO DAILY 07/02/24 07/02/24 carvediloL [Coreg] 3.125 mg PO BID-W/MEALS 07/02/24 07/02/24 Previous Rx's Medication Instructions Recorded Atorvastatin [Lipitor] 20 mg PO HS #90 tab 05/05/22 Allergies Allergy/AdvReac Type Severity Reaction Status Date / Time empagliflozin AdvReac Rash/Hives Verified 07/02/24 16:09 [From Jardiance] Review of Systems ROS Statement: Those systems with pertinent positive or pertinent negative responses have been documented in the HPI. ROS Other: All systems not noted in ROS Statement are negative. Past Medical History Past Medical History: Pulmonary Embolus (PE) Additional Past Medical History / Comment(s): Gout , PE, cardiomyopathy left ventricle ejection fraction of around 15% and the patient has also on RV thrombus. History of Any Multi-Drug Resistant Organisms: None Reported Past Surgical History: No Surgical Hx Reported Additional Past Surgical History / Comment(s): hand surgery Past Anesthesia/Blood Transfusion Reactions: No Reported Reaction Past Psychological History: No Psychological Hx Reported Smoking Status: Vaper Past Alcohol Use History: Occasional Past Drug Use History: Marijuana - Past Family History Father Family Medical History: Pulmonary Embolus General Exam Limitations: no limitations General appearance: alert, in no apparent distress Head exam: Present: atraumatic, normocephalic, normal inspection Eye exam: Present: normal appearance, PERRL, EOMI. Absent: scleral icterus, conjunctival injection, periorbital swelling ENT exam: Present: normal exam, normal oropharynx, mucous membranes moist Neck exam: Present: normal inspection. Absent: tenderness, meningismus, lymphadenopathy Respiratory exam: Present: normal lung sounds bilaterally. Absent: respiratory distress, wheezes, rales, rhonchi, stridor Cardiovascular Exam: Present: normal rhythm, tachycardia, normal heart sounds. Absent: systolic murmur, diastolic murmur, rubs, gallop, clicks Course Vital Signs 07/02/24 07/02/24 12:10 15:15 Temperature 98.4 F Pulse Rate 112 H 93 Respiratory 20 18 Rate Blood Pressure 110/88 106/93 O2 Sat by Pulse 98 98 Oximetry Medical Decision Making - Medical Decision Making Was pt. sent in by a medical professional or institution (, PA, CUSTOMER EXPERT, urgent care, hospital, or retirement...) When possible be specific @ -No Did you speak to anyone other than the patient for history (EMS, parent, family, police, friend...)? What history was obtained from this source @ -No Did you review nursing and triage notes (agree or disagree)? Why? @ -I reviewed and agree with nursing and triage notes Were old charts reviewed (outside hosp., previous admission, EMS record, old EKG, old radiological studies, urgent care reports/EKG's, retirement records)? Report findings @ -No old charts were reviewed Differential Diagnosis (chest pain, altered mental status, abdominal pain women, abdominal pain men, vaginal bleeding, weakness, fever, dyspnea, syncope, headache, dizziness, GI bleed, back pain, seizure, CVA, palpatations, mental health, musculoskeletal)? @ -[Differential Dyspnea: Coronary syndrome, arrhythmia, tamponade, asthma, COPD, pulmonary embolism, pneumonia, pneumothorax, pulmonary effusion, anaphylaxis, diabetic ketoacidosis, flailed chest, pulmonary contusion, diaphragmatic rupture, anemia, neuromuscular, this is not meant to be an all-inclusive list. EKG interpreted by me (3pts min.). @ -As above X-rays interpreted by me (1pt min.). @ -[Chest x-ray questions left lower lobe pneumonia CT interpreted by me (1pt min.). @ -CT angio chest showing evidence of granulomatous calcified area, no evidence of PE, fatty liver disease U/S interpreted by me (1pt. min.). @ -On liver showing large liver, enlarged gallbladder without acute infectious or obstructive process What testing was considered but not performed or refused? (CT, X-rays, U/S, labs)? Why? @ -None What meds were considered but not given or refused? Why? @ -None Did you discuss the management of the patient with other professionals (pk ren i.eAdrienne Patel, PA, CUSTOMER EXPERT, lab, RT, psych nurse, social services director, pastor, teacher, correctional program officer, ed case manager)? Give summary @ -Dr. Villegas for admission Was smoking cessation discussed for >3mins.? @ -No Was critical care preformed (if so, how long)? @ -No Were there social determinants of health that impacted care today? How? (Homelessness, low income, unemployed, alcoholism, drug addiction, trans portation, low edu. Level, literacy, decrease access to med. care, halfway, rehab)? @ -No Was there de-escalation of care discussed even if they declined (Discuss DNR or withdrawal of care, Hospice)? DNR status @ -No What co-morbidities impacted this encounter? (DM, HTN, Smoking, COPD, CAD, Cancer, CVA, ARF, Chemo, Hep., AIDS, mental health diagnosis, sleep apnea, morbid obesity)? @ -CHF, PE Was patient admitted / discharged? Hospital course, mention meds given and route, prescriptions, significant lab abnormalities, going to OR and other pertinent info. @ -Admitted patient presented the emergency department for urinary symptoms, shortness of breath. Patient had no hypoxic events here he did present tachycardic which laboratory studies were drawn patient did have elevated D- dimer above 4. CT does not reveal any evidence of PE. Patient is currently anticoagulated. Patient is found to have significant transaminitis without acute reason. Patient will be admitted for GI evaluation hepatitis panel was added along with consult to GI. Undiagnosed new problem with uncertain prognosis? @ -Yes Drug Therapy requiring intensive monitoring for toxicity (Heparin, Nitro, Insulin, Cardizem)? @ -No Were any procedures done? @ -No Diagnosis/symptom? @ -URI, transaminitis Acute, or Chronic, or Acute on Chronic? @ -Acute Uncomplicated (without systemic symptoms) or Complicated (systemic symptoms)? @ -Complicated Side effects of treatment? @ -No Exacerbation, Progression, or Severe Exacerbation? @ -No Poses a threat to life or bodily function? How? (Chest pain, [place], GA, pneumonia, PE, COPD, DKA, ARF, appy, cholecystitis, CVA, Diverticulitis, Homicidal, Suicidal, threat to staff... and all critical care pts) @ -No - Lab Data Result diagrams: 07/02/24 12:50 07/02/24 12:50 Lab Results 07/02/24 07/02/24 07/02/24 Range/Units 12:40 12:50 12:50 WBC 9.57 (4.50-10.00) 10*3/uL RBC 4.65 (4.40-5.60) 10*6/uL Hgb 14.2 (13.0-17.0) g/dL Hct 43.3 (39.6-50.0) % MCV 93.1 (80.0-97.0) fL MCH 30.5 (27.0-32.0) pg MCHC 32.8 (32.0-37.0) g/dL Plt Count 263 (140-440) 10*3/uL MPV 10.6 (9.5-12.2) fL Immature Gran % (Auto) 0.3 % Neutrophils % 70.6 % Lymphocytes % 17.3 % Monocytes % 9.4 % Eosinophils % 1.1 % Basophils % 1.3 % Immature Gran # 0.03 (0.00-0.04) 10*3/uL Neutrophils # 6.75 (1.80-7.70) 10*3/uL Lymphocytes # 1.66 (0.90-5.00) 10*3/uL Monocytes # 0.90 (0.20-1.00) 10*3/uL Eosinophils # 0.11 (0.04-0.35) 10*3/uL Basophils # 0.12 H (0.00-0.10) 10*3/uL PT 18.4 H (10.0-12.5) sec INR 1.8 H (<1.2) APTT 23.3 (22.0-30.0) sec D-Dimer 4.13 H (<0.60) mg/L FEU Sodium (137-145) mmol/L Potassium (3.5-5.1) mmol/L Chloride (98-107) mmol/L Carbon Dioxide (22-30) mmol/L Anion Gap mmol/L BUN (9-20) mg/dL Creatinine (0.66-1.25) mg/dL Est GFR (CKD-EPI)AfAm (>60 ml/min/1.73 sqM) Est GFR (CKD-EPI)NonAf (>60 ml/min/1.73 sqM) Glucose (74-99) mg/dL Calcium (8.4-10.2) mg/dL Total Bilirubin (0.2-1.3) mg/dL AST (17-59) U/L ALT (4-49) U/L Alkaline Phosphatase (38-126) U/L Total Protein (6.3-8.2) g/dL Albumin (3.5-5.0) g/dL Acetaminophen <10.0 ug/mL Influenza Type A (PCR) (Not Detectd) Influenza Type B (PCR) (Not Detectd) RSV (PCR) (Not Detectd) SARS-CoV-2 (PCR) (Not Detectd) 07/02/24 07/02/24 Range/Units 12:50 12:50 WBC (4.50-10.00) 10*3/uL RBC (4.40-5.60) 10*6/uL Hgb (13.0-17.0) g/dL Hct (39.6-50.0) % MCV (80.0-97.0) fL MCH (27.0-32.0) pg MCHC (32.0-37.0) g/dL Plt Count (140-440) 10*3/uL MPV (9.5-12.2) fL Immature Gran % (Auto) % Neutrophils % % Lymphocytes % % Monocytes % % Eosinophils % % Basophils % % Immature Gran # (0.00-0.04) 10*3/uL Neutrophils # (1.80-7.70) 10*3/uL Lymphocytes # (0.90-5.00) 10*3/uL Monocytes # (0.20-1.00) 10*3/uL Eosinophils # (0.04-0.35) 10*3/uL Basophils # (0.00-0.10) 10*3/uL PT (10.0-12.5) sec INR (<1.2) APTT (22.0-30.0) sec D-Dimer (<0.60) mg/L FEU Sodium 134 L (137-145) mmol/L Potassium 5.1 (3.5-5.1) mmol/L Chloride 104 (98-107) mmol/L Carbon Dioxide 22 (22-30) mmol/L Anion Gap 8 mmol/L BUN 20 (9-20) mg/dL Creatinine 1.41 H (0.66-1.25) mg/dL Est GFR (CKD-EPI)AfAm 73 (>60 ml/min/1.73 sqM) Est GFR (CKD-EPI)NonAf 64 (>60 ml/min/1.73 sqM) Glucose 130 H (74-99) mg/dL Calcium 9.8 (8.4-10.2) mg/dL Total Bilirubin 1.9 H (0.2-1.3) mg/dL AST 1000 H (17-59) U/L ALT 1188 H (4-49) U/L Alkaline Phosphatase 75 (38-126) U/L Total Protein 6.3 (6.3-8.2) g/dL Albumin 3.6 (3.5-5.0) g/dL Acetaminophen ug/mL Influenza Type A (PCR) Not Detected (Not Detectd) Influenza Type B (PCR) Not Detected (Not Detectd) RSV (PCR) Not Detected (Not Detectd) SARS-CoV-2 (PCR) Not Detected (Not Detectd) - EKG Data -: EKG Interpreted by Me EKG Comments: EKG performed at 12: 54 sinus rhythm with frequent PVCs rate of 97 NJ 180 QRS 94 QT/QTc 361/415 Disposition Clinical Impression: Acute upper respiratory infection, Transaminitis Disposition: ADMITTED IP TO THIS HOSP Condition: Fair Referrals: None,Stated [REFERRING] - 1-2 days Time of Disposition: 16:20
[2024-07-02 12:58] LABS: Basophils # (A) 0.12 10*3/uL (0.00-0.10); Basophils % (A) 1.3 %; Eosinophils # (A) 0.11 10*3/uL (0.04-0.35); Eosinophils % (A) 1.1 %; HCT 43.3 % (39.6-50.0); HGB 14.2 g/dL (13.0-17.0); Lymphocytes # (A) 1.66 10*3/uL (0.90-5.00); Lymphocytes % (A) 17.3 %; MCH 30.5 pg (27.0-32.0); MCHC 32.8 g/dL (32.0-37.0); MCV 93.1 fL (80.0-97.0); Mean Platelet Volume 10.6 fL (9.5-12.2); Monocytes % (A) 9.4 %; Neutrophils # (A) 6.75 10*3/uL (1.80-7.70); Neutrophils % (A) 70.6 %; Platelet Count 263 10*3/uL (140-440); RBC 4.65 10*6/uL (4.40-5.60); RDW 14.8 % (11.5-14.5); WBC 9.57 10*3/uL (4.50-10.00)
--- NOTE | 2024-07-02 13:07 | XR ---
PA and lateral chest CLINICAL INDICATION: Male, 38 years old with history of difficulty breathing, Cough, chest pain, shor tness of breath COMPARISON: 04/30/2022 TECHNIQUE: PA and lateral views the chest were obtained. FINDINGS: There is a small focal opacity in left lower lobe which could represent a developing pneumonia.. There is no pleural effusion, pleural thickening or pneumothorax. There is mild cardiomegaly and a single lead cardiac pacemaker.. The osseous structures and soft tissues of the thorax are intact. IMPRESSION: 1. Possible small developing pneumonia in the left lower lobe and short term follow-up to resolution is recommended. 2. Moderate cardiomegaly with single lead cardiac pacemaker [facility], , 07/02/2024 1:05 PM
[2024-07-02] MEDS: SODIUM CHLORIDE 0.9% 1,000 ML IV ONE (13:08)
[2024-07-02 13:18] LABS: INR 1.8 (<1.2); Partial Thromboplastin Time 23.3 sec (22.0-30.0); Prothrombin Time 18.4 sec (10.0-12.5)
[2024-07-02 13:19] LABS: Albumin 3.6 g/dL (3.5-5.0); Anion Gap 8 mmol/L; Blood Urea Nitrogen 20 mg/dL (9-20); Carbon Dioxide 22 mmol/L (22-30); Chloride 104 mmol/L (98-107); Sodium 134 mmol/L (137-145); Total Bilirubin 1.9 mg/dL (0.2-1.3)
[2024-07-02 13:31] LABS: African American GFR (CKD) 73 (>60 ml/min/1.73 sqM); Alkaline Phosphatase 75 U/L (38-126); Calcium 9.8 mg/dL (8.4-10.2); Glucose 130 mg/dL (74-99); Non-African American GFR(CKD) 64 (>60 ml/min/1.73 sqM); Potassium 5.1 mmol/L (3.5-5.1); Total Protein 6.3 g/dL (6.3-8.2)
[2024-07-02 13:32] LABS: Influenza A Not Detected (Not Detectd); Influenza B Not Detected (Not Detectd); RSV Not Detected (Not Detectd)
[2024-07-02 13:38] LABS: ALT 1188 U/L (4-49); AST 1000 U/L (17-59)
--- NOTE | 2024-07-02 14:23 | CT ---
EXAMINATION TYPE: CT chest angio for PE DATE OF EXAM: 07/02/2024 2:10 PM COMPARISON: Previous chest angiogram study 02/12/2020 CLINICAL INDICATION: Male, 38 years old with history of sob; ELEVATED DIMER, HX PE TECHNIQUE/CONTRAST: CTA scan of the thorax is performed with IV Contrast, patient injected with 100 mL of Isovue 370, MIP images are created and reviewed these are created on a separate workstation.. CT DLP: 653.5 mGycm, Automated exposure control for dose reduction was used. FINDINGS: Pulmonary Artery: There is no evidence for a filling defect within the pulmonary vasculature to sugge st acute pulmonary embolism. The pulmonary artery is of normal size. Lungs/Pleura: No evidence of focal consolidation, pleural effusion or pneumothorax. Partially calcifi ed 14 mm pleural-based nodule in the left lower lobe, new from prior study. 4 mm groundglass nodule i n the right lung apex. Scarring/atelectasis in the bilateral lower lobes. Nodular scarring/atelectasi s in the right middle lobe. Airway: Large airways are patent. Heart: Cardiomegaly. Left chest wall cardiac AICD device with lead terminating in the right ventricle . Vasculature: No evidence of aortic aneurysm. Mediastinum: No gross evidence of adenopathy. Musculoskeletal: No acute osseous abnormalities Soft Tissues/lymph nodes: Unremarkable. Lower neck: No significant findings. Upper Abdomen: Diffuse low-attenuation to the liver parenchyma.. IMPRESSION: 1. No central or segmental acute pulmonary embolism. 2. Cardiomegaly. 3. New partially calcified 14 mm pleural-based nodular density in the left lower lobe, possibly fatt y calcified granuloma. 4. Hepatic steatosis. [facility], , 07/02/2024 2:20 PM
--- NOTE | 2024-07-02 15:19 | US ---
EXAMINATION TYPE: US liver DATE OF EXAM: 07/02/2024 COMPARISON: US(02/11/2022) CLINICAL INDICATION: Male, 38 years old with history of Transaminitis; TECHNIQUE: Grayscale and color Doppler imaging of the right upper quadrant. FINDINGS: EXAM MEASUREMENTS: Liver Length: 19.5 cm Gallbladder Wall: 0.7 cm CBD: 0.5 cm, color Doppler imaging was utilized to isolate the common bile duct for measurement. Right Kidney: 9.7x5.5x5.3 cm CUSTOMER AGENT NOTES: slightly limited visualization due to overlying bowel & pt body habitus Pancreas: Tail obscured by overlying bowel gas Liver: Enlarged, appears homogenous overall Gallbladder: Gallbladder wall thickening/edema measuring 7 mm in diameter without sonographic eviden ce of cholelithiasis, possibly related to underdistention given patient was not NPO. Evidence for sonographic Ledezma's sign: No CBD: slightly obscured by bowel, wnl as visualized Right Kidney: No hydronephrosis or masses seen IMPRESSION: Unremarkable right upper quadrant ultrasound exam. [facility], , 07/02/2024 3:17 PM
[2024-07-02] MEDS ORDERED: NALOXONE 0.4 MG/ML 1 ML VIAL IV PRN (16:20)
[2024-07-02] MEDS ORDERED: FUROSEMIDE 40 MG TAB PO PRN (16:21)
--- NOTE | 2024-07-02 16:53 | P.HPIM ---
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 Patient says that over the last several days he started to develop cough with minimal sputum production, worsening shortness of breath especially when lying flat. He has noticed some weight gain, reports his dry weight is 240 pounds whereas he is weighing in at 250 pounds as of his last check. His only medication change recently was changing metoprolol to carvedilol per his rod pointer. Otherwise he has been on guideline directed medical therapy along with ICD implantation for his known heart failure. Patient presents today at the request of his nurse due to ongoing symptoms of worsening shortness of breath. He denies fevers, chills, nausea, vomiting, chest pain, palpitations, muscle aches, bone aches, rashes, dysuria, dyschezia, numbness/weakness of extremities. In the emergency room, patient was afebrile, 110/88, heart rate 112, 98% on room air. CBC is unremarkable. Basic metabolic panel shows a creatinine of 1.41 with a baseline of 0.97. Liver function test show total bilirubin of 1.9, AST of 1000, ALT of 1188. Tylenol level is less than 10. Influenza A, B, RSV, COVID are negative. Coags show an INR of 1.8. D-dimer was 4.13. Chest x-ray demonstrates moderate cardiomegaly with increased vascularity, early infiltrate definitely in the left, and subtly in the right concerning for edema versus developing infection, this is personally interpreted by the admitting physician. CT angiography is limited by motion artifact, redemonstrates cardiomegaly, does not show any central or segmental acute pulmonary embolism but does show a new partially calcified 14 mm pleural-based nodular density in the left lower lobe, as well as hepatic steatosis, this is personally interpreted by the admitting physician. Liver ultrasound is unremarkable in the right upper quadrant. Case was discussed with the emergency room provider and decision was made to admit the patient to the hospital for further evaluation of abnormal liver enzymes with worsening shortness of breath. All Systems reviewed and pertinent positives and negatives noted in HPI, all other symptoms are negative Gen: in no apparent distress, resting comfortably in bed Eyes: PERRL, no scleral injection or icterus HENT: normocephalic, atraumatic, good hearing acuity, moist mucous membranes Neck: no tracheal deviation, full range of motion Resp: good air exchange, breathing comfortably with no accessory muscle use, no tactile fremitus, audible crackles more predominant in the left than the right CVS: good distal perfusion x 4, bilateral 1+ pitting edema, JVD is present to the angle of the jaw in an upright position GI: soft, NTTP, ND, no hepatosplenomegaly : no suprapubic tenderness, no CVAT, cabrera catheter not present MSK: no clubbing, no cyanosis, no noted contractures of extremities Skin: no noted rashes, petechiae; temperature of skin is appropriate Neuro: moving all extremities without signs of weakness, CN II-XII intact Psych: cooperative, euthymic mood, insight and judgment intact Labs and imaging as above Assessment/plan: Acute on chronic biventricular heart failure with reduced ejection fraction down 10 to 15% Congestive hepatopathy Acute kidney injury - Admit patient as an inpatient with telemetry - Lasix 40 mg IV daily - Strict ins and outs, daily weights - Repeat echocardiogram - BNP added on - Cardiology consult appreciated - Continue guideline directed medical therapy as follows: Carvedilol, spironolactone; hold atorvastatin due to elevated liver enzymes, hold Entresto due to MICHELLE New pleural-based nodule in the left lower lobe -Pulmonology consult - Defer antibiotics at this time - Obtain procalcitonin History of pulmonary embolism - Continue apixaban Pt is Full Code DVT PPx covered with Eliquis Past Medical History Past Medical History: Pulmonary Embolus (PE) Additional Past Medical History / Comment(s): Gout , PE, cardiomyopathy left ventricle ejection fraction of around 15% and the patient has also on RV thrombus. History of Any Multi-Drug Resistant Organisms: None Reported Past Surgical History: No Surgical Hx Reported Additional Past Surgical History / Comment(s): hand surgery Past Anesthesia/Blood Transfusion Reactions: No Reported Reaction Past Psychological History: No Psychological Hx Reported Smoking Status: Vaper Past Alcohol Use History: Occasional Past Drug Use History: Marijuana - Past Family History Father Family Medical History: Pulmonary Embolus Medications and Allergies Home Medications Medication Instructions Recorded Confirmed Type Atorvastatin [Lipitor] 20 mg PO HS #90 tab 05/05/22 07/02/24 Rx Apixaban [Eliquis] 5 mg PO BID 07/02/24 07/02/24 History Folic Acid 1 mg PO DAILY 07/02/24 07/02/24 History Furosemide [Lasix] 40 mg PO DAILY PRN 07/02/24 07/02/24 History Sacubitril/Valsartan [Entresto 49 1 tab PO BID 07/02/24 07/02/24 History mg-51 mg Tablet] Spironolactone [Aldactone] 25 mg PO Q2D 07/02/24 07/02/24 History allopurinoL [Zyloprim] 300 mg PO DAILY 07/02/24 07/02/24 History carvediloL [Coreg] 3.125 mg PO BID-W/MEALS 07/02/24 07/02/24 History Allergies Allergy/AdvReac Type Severity Reaction Status Date / Time empagliflozin AdvReac Rash/Hives Verified 07/02/24 16:09 [From Jardiance] Physical Exam Osteopathic Statement: *. No significant issues noted on an osteopathic structural exam other than those noted in the History and Physical/Consult. Vitals: Vital Signs Temp Pulse Resp BP Pulse Ox 07/02/24 15:15 93 18 106/93 98 07/02/24 12:10 98.4 F 112 H 20 110/88 98 Intake and Output 07/02/24 07/02/24 07/02/24 06:59 14:59 22:59 Other: Weight 113.398 kg Results CBC & Chem 7: 07/02/24 12:50 07/02/24 12:50 Labs: Abnormal Lab Results - Last 24 Hours (Table) 07/02/24 07/02/24 07/02/24 Range/Units 12:50 12:50 12:50 Basophils # 0.12 H (0.00-0.10) 10*3/uL PT 18.4 H (10.0-12.5) sec INR 1.8 H (<1.2) D-Dimer 4.13 H (<0.60) mg/L FEU Sodium 134 L (137-145) mmol/L Creatinine 1.41 H (0.66-1.25) mg/dL Glucose 130 H (74-99) mg/dL Total Bilirubin 1.9 H (0.2-1.3) mg/dL AST 1000 H (17-59) U/L ALT 1188 H (4-49) U/L
[2024-07-02] MEDS: carvediloL 3.125 MG TAB PO SCH (16:56)
[2024-07-02] MEDS: FUROSEMIDE 10 MG/ML 4 ML VIAL IV STA (16:58)
[2024-07-02 17:58] LABS: Appearance,Urine Clear (Clear); Bilirubin,Urine Negative (Negative); Blood,Urine Negative (Negative); Color,Urine Light Yellow; Glucose,Urine (UA) Negative (Negative); Ketones,Urine Negative (Negative); Leukocyte Esterase,Urine Negative (Negative); Nitrite,Urine Negative (Negative); Protein,Urine Negative (Negative); Specific Gravity,Urine 1.042 (1.001-1.035); Urobilinogen,Urine <2.0 mg/dL (<2.0)
[2024-07-02] MEDS ORDERED: SACUBITRIL/VALSARTAN 49 MG-51 MG TABLET PO SCH (21:00)
[2024-07-02] MEDS: APIXABAN 5 MG TAB PO SCH (22:01)
[2024-07-03] MEDS ORDERED: BENZONATATE 100 MG CAP PO PRN (05:04)
--- NOTE | 2024-07-03 05:46 | P.CNPUL ---
History of Present Illness Consult date: 07/03/24 Requesting physician: Twyla Villegas Reason for consult: other (Pulmonary nodule) Chief complaint: URI-like symptoms History of present illness: Patient is a 38-year-old male with past medical history significant for severe cardiomyopathy, AICD/pacemaker, cardiac thrombus, CVA, pulmonary embolism. Presents to the emergency department yesterday afternoon with a chief complaint of cough, chest congestion, fatique. Symptoms started approximately 5 days ago. He works at the [employer]. While at work, he was having some difficulty breathing. He was told his oxygen levels were reading low, 88 to 89% on room air. Came to the emergency department for evaluation. Workup in the ED including a chest CTA which did not show any central or segmental acute pulmonary emboli. New solitary partially calcified 14 mm pleural-based nodular density in the left lower lobe, possibly fatty calcified granuloma or hamartoma. For this reason, a pulmonary consult was placed. CBC is unremarkable, no leukocytosis, hemoglobin 14, platelets 263. BMP, electrolytes WDL, creatinine 1.41, glucose 130. LFTs elevated with an AST of 1000, ALT 1188, ALP of 75. Viral 4 Plex negative for influenza A/B, RSV, COVID. NT proBNP 6630. Patient currently being evaluated on the general medical floor. He is resting comfortably on room air in the bedside recliner. Endorses the above-mentioned symptoms. Denies significant sputum production. Cough is mostly nonproductive with occasional clear sputum. Denies purulent sputum or hemoptysis. Denies fevers, chills. Denies nausea, vomiting, diarrhea. Appetite has been fair. He denies any recent outpatient treatment for pneumonias. States he is exposed to many sick contacts at work. Denies history of COPD or asthma. He is a lifelong non-tobacco smoker. Denies history of cancer. Does report some increased lower extremity swelling. Takes Lasix on an outpatient basis as needed. He has history of severe biventricular heart failure with a left ventricular ejection fraction of 10 to 15%. Current vital signs: Temperature 98 F, heart rate 96 bpm, blood pressure 98/71 mmHg, nontachypneic, SpO2 was recorded at 100% on room air. Review of Systems Constitutional: Reports fatigue, Denies chills, Denies fever, Denies night sweats, Denies poor appetite, Denies weakness, Denies weight gain, Denies weight loss Ears, nose, mouth and throat: Denies headache, Denies nasal congestion, Denies nasal discharge, Denies neck lump, Denies post-nasal drip, Denies sinus pain, Denies sinus pressure, Denies sore throat Cardiovascular: Reports dyspnea on exertion, Reports leg edema, Reports orthopnea, Denies chest pain, Denies lightheadedness, Denies palpitations, Denies paroxysmal nocturnal dyspnea, Denies syncope Respiratory: Reports congestion, Reports cough with sputum, Reports dyspnea, Denies excessive sputum, Denies home oxygen, Denies pain on inspiration Gastrointestinal: Denies constipation, Denies diarrhea, Denies hematemesis, Denies hematochezia, Denies melena, Denies nausea, Denies vomiting Genitourinary: Denies dysuria Musculoskeletal: Denies limitation of motion Integumentary: Denies rash, Denies unusual bruising Neurological: Denies head injury, Denies headaches, Denies seizures, Denies syncope Psychiatric: Denies anxiety, Denies depression Past Medical History Past Medical History: Pulmonary Embolus (PE) Additional Past Medical History / Comment(s): Gout , PE, cardiomyopathy left ventricle ejection fraction of around 15% and the patient has also on RV thrombus. History of Any Multi-Drug Resistant Organisms: None Reported Past Surgical History: No Surgical Hx Reported Additional Past Surgical History / Comment(s): hand surgery Past Anesthesia/Blood Transfusion Reactions: No Reported Reaction Past Psychological History: No Psychological Hx Reported Smoking Status: Vaper Past Alcohol Use History: Occasional Past Drug Use History: Marijuana - Past Family History Father Family Medical History: Pulmonary Embolus Medications and Allergies Home Medications Medication Instructions Recorded Confirmed Type Atorvastatin [Lipitor] 20 mg PO HS #90 tab 05/05/22 07/02/24 Rx Apixaban [Eliquis] 5 mg PO BID 07/02/24 07/02/24 History Folic Acid 1 mg PO DAILY 07/02/24 07/02/24 History Furosemide [Lasix] 40 mg PO DAILY PRN 07/02/24 07/02/24 History Sacubitril/Valsartan [Entresto 49 1 tab PO BID 07/02/24 07/02/24 History mg-51 mg Tablet] Spironolactone [Aldactone] 25 mg PO Q2D 07/02/24 07/02/24 History allopurinoL [Zyloprim] 300 mg PO DAILY 07/02/24 07/02/24 History carvediloL [Coreg] 3.125 mg PO BID-W/MEALS 07/02/24 07/02/24 History Allergies Allergy/AdvReac Type Severity Reaction Status Date / Time empagliflozin AdvReac Rash/Hives Verified 07/02/24 16:09 [From Jardiance] Physical Exam Vitals: Vital Signs Temp Pulse Pulse Resp BP BP Pulse Ox 07/03/24 02:17 98.0 F 96 16 98/71 100 07/02/24 23:23 98 F 93 14 115/87 96 07/02/24 18:18 87 16 98 07/02/24 16:53 90 16 107/80 99 07/02/24 15:15 93 18 106/93 98 07/02/24 12:10 98.4 F 112 H 20 110/88 98 Intake and Output 07/02/24 07/02/24 07/03/24 14:59 22:59 06:59 Other: Voiding Method Toilet Weight 113.398 kg 113.398 kg GENERAL EXAM: Alert, 38-year-old obese male, sitting up in bedside recliner, on room air, comfortable in no apparent distress. HEAD: Normocephalic and atraumatic EYES: Normal reaction of pupils, equal size. NOSE: Clear with pink turbinates. THROAT: No erythema or exudates. NECK: No masses, no JVD. CHEST: No chest wall deformity. Left chest implanted device LUNGS: Equal air entry with no crackles, wheeze, rhonchi or dullness. On room air. no conversational dyspnea or accessory muscle use.. CVS: S1 and S2 normal with no soft systolic murmur, regular rhythm. No other extra heart sounds ABDOMEN: No hepatosplenomegaly, active bowel sounds, no guarding or rigidity. SPINE: No scoliosis or deformity SKIN: No rashes CENTRAL NERVOUS SYSTEM: No focal deficits, tone is normal in all 4 extremities. EXTREMITIES: There is 2-3+ bilateral lower extremity edema. Clubbing or cyanosis. Peripheral pulses are intact. Results - Laboratory Findings CBC and BMP: 07/03/24 05:19 07/03/24 05:19 PT/INR, D-dimer PT 18.4 sec (10.0-12.5) H 07/02/24 12:50 INR 1.8 (<1.2) H 07/02/24 12:50 D-Dimer 4.13 mg/L FEU (<0.60) H 07/02/24 12:50 Abnormal lab findings: Abnormal Labs 07/02/24 07/02/24 07/02/24 12:50 12:50 12:50 Basophils # 0.12 H PT 18.4 H INR 1.8 H D-Dimer 4.13 H Sodium 134 L Creatinine 1.41 H Glucose 130 H Total Bilirubin 1.9 H AST 1000 H ALT 1188 H Ur Specific [place] 07/02/24 17:49 Basophils # PT INR D-Dimer Sodium Creatinine Glucose Total Bilirubin AST ALT Ur Specific [place] 1.042 H - Diagnostic Findings Chest x-ray: image reviewed CT scan - chest: image reviewed Assessment and Plan Assessment: Solitary 14 mm partially calcified pleural-based nodular density, possible calcified granuloma or hamartoma Acute dyspnea, chest CTA does not show any evidence of central or segmental acute pulmonary emboli, no evidence of focal consolidations, pleural effusions, or pneumothoraces. Above-mentioned pleural-based density was noted. 4 mm groundglass opacity in the right lung apex. Severe cardiomyopathy, with a reduced ejection fraction of 10 to 15%, maintained on a combination of carvedilol, spironolactone, and Entresto on outpatient basis Elevated liver enzymes, possible congestive hepatopathy, ultrasound of the liver significant for large homogenous liver, gallbladder wall was thickened measuring approximately 7 mm without sonographic evidence of cholelithiasis. Hepatitis panel pending. Acute kidney injury, creatinine 1.41 History of PE, maintained on Eliquis History of cardiac thrombus History of CVA Obesity, with a BMI of 31.2 kg/m Plan: Patient's medications, labs, imaging reviewed Case to be discussed with Dr Avendano, including chest CTA results Continue supportive care for possible viral URI Viral 4 Plex negative for influenza A/B, RSV, COVID Add Robitussin DM for cough Currently on room air Cardiology was also consulted Started on Lasix 40 mg IV daily Monitor renal function Eliquis was continued Additional recommendations are forthcoming I have personally seen and examined the patient, performed the documentation and the assessment and plan as written. Number of minutes spent on the visit:20 This is a joint evaluation was done along with the nurse practitioner. This evaluation was done in more than 30 minutes. I met the patient and I also reviewed the series of x-rays and the CAT scan of the chest was done earlier and also reviewed the current CAT scan of the chest. In summary, the patient is known to have severe nonischemic cardiomyopathy with an EF of around 10 to 15%. The patient was hospitalized for worsening shortness of breath. He also had some mild transaminitis and acute kidney injury. The patient had a CAT scan of the chest that showed a nodule in the left lower lobe. I reviewed the CAT scan of the chest and the nodule itself seems to be benign. This can be an area of round atelectasis versus a partially calcified pleural-based nodule as there is some limited amount of calcification within the lesion. As such, this is most likely benign. The patient is a lifetime non-smoker. CAT scan of the chest showed cardiomegaly. Previous CAT scan of the chest that was done on this patient back in January 2022 showed no significant abnormality within the left lower lobe and back then the patient had pulmonary embolism. Another CT of the thoracic aorta that was done on 04/30/2022 showed a left-sided pleural effusion along with some atelectatic changes in the left lung base. For now, the patient is being optimized regarding his CHF. Echocardiogram that was done showed impairment of the LV function with an EF of around 5 to 10% in addition to dilated RV and global hypokinesis and mild MR and mild TR with moderate degree of pulmonary hypertension. The patient's ultrasound of the liver showed no significant abnormalities. On today's blood work, the patient has a normal white cell count, normal hemoglobin, electrolytes are normal, LFTs are esse ntially improving and UA is negative. The proBNP level was above 6000. The patient is currently being diuresed with Lasix 40 mg IV every 12 hours. The patient remains on Coreg. Patient is also on Entresto and Aldactone and long- term anticoagulation with Eliquis regarding previous history of pulmonary embolism. Respiratory status is stable and the patient is currently on room air oxygen. Discussed those findings with the patient. Will do an outpatient follow-up regarding this nodule. Time with Patient: Greater than 30
[2024-07-03] MEDS: FUROSEMIDE 10 MG/ML 4 ML VIAL IV SCH (08:36)
[2024-07-03] MEDS: FOLIC ACID 1 MG TAB PO SCH (08:36)
[2024-07-03] MEDS: allopurinoL 300 MG TAB PO SCH (08:36)
[2024-07-03 09:09] LABS: Basophils # (A) 0.08 X 10*3/uL (0.00-0.10); Eosinophils # (A) 0.23 X 10*3/uL (0.04-0.35); Eosinophils % (A) 2.9 %; HCT 43.5 % (39.6-50.0); HGB 13.6 g/dL (13.0-17.0); Lymphocytes # (A) 1.33 X 10*3/uL (0.90-5.00); MCH 29.8 pg (27.0-32.0); MCHC 31.3 g/dL (32.0-37.0); MCV 95.2 FL (80.0-97.0); Mean Platelet Volume 11.5 FL (9.5-12.2); Monocytes # (A) 1.01 X 10*3/uL (0.20-1.00); Monocytes % (A) 12.9 %; NRBC Per 100 WBC 0 X 10*3/uL (0.00-0.01); Neutrophils # (A) 5.17 X 10*3/uL (1.80-7.70); Neutrophils % (A) 65.9 %; Platelet Count 226 X 10*3/uL (140-440); RBC 4.57 X 10*6/uL (4.40-5.60); RDW 15.1 % (11.5-14.5); WBC 7.84 X 10*3/uL (4.50-10.00)
[2024-07-03 09:23] LABS: Magnesium 1.6 mg/dL (1.5-2.4)
[2024-07-03 09:28] LABS: ALT 976 U/L (10-49); AST 497 U/L (14-35); Albumin 3.6 g/dL (3.8-4.9); Albumin/Globulin Ratio 1.71 Ratio (1.60-3.17); Alkaline Phosphatase 83 U/L (41-126); BUN/Creat Ratio 13.93 Ratio (12.00-20.00); Bilirubin, Conjugated 0.59 mg/dL (0.20-0.40); Bilirubin,Unconjugated 0.51 mg/dL (0.20-1.00); Blood Urea Nitrogen 19.5 mg/dL (9.0-27.0); Carbon Dioxide 23.3 mmol/L (21.6-31.8); Chloride 100 mmol/L (96-109); Globulin 2.1 g/dL (1.6-3.3); Glucose 100 mg/dL (70-110); Potassium 4.3 mmol/L (3.5-5.5); Sodium 134 mmol/L (135-145); Total Bilirubin 1.1 mg/dL (0.3-1.2); Total Protein 5.7 g/dL (6.2-8.2)
[2024-07-03] MEDS: SACUBITRIL/VALSARTAN 24 MG-26 MG TABLET PO SCH (09:36)
[2024-07-03] MEDS: guaiFENesin-DM 100-10MG/5ML 10 ML CUP PO PRN (09:36)
[2024-07-03 09:49] LABS: Hepatitis A Antibody IgM Nonreactive (Nonreactive); Hepatitis B Surface Antigen Nonreactive (Nonreactive); Hepatitis C IgG Antibody Nonreactive (Nonreactive)
[2024-07-03 10:29] LABS: Hepatitis B Core IgM Nonreactive (Nonreactive)
[2024-07-03] MEDS: MAGNESIUM SULFATE-D5W PMX 1 GM in DEXTROSE/WATER 1 100ML.BAG IVPB SCH (11:53)
--- NOTE | 2024-07-03 12:20 | P.CRDCN ---
History of Present Illness History of present illness: HISTORY OF PRESENT ILLNESS: This is a 38-year-old male with a past medical history significant for dilated cardiomyopathy, AICD implantation, CVA, pulmonary embolism, and intracardiac thr ombus. Patient follows with a numerical control nesting operator in [place], Dr. Sow. We have been asked to see the patient in consultation for heart failure. Patient examined at the bedside. Patient presented to the hospital with a chief complaint of shortness of breath. He states for the past week he has been coughing with sputum production. He states yesterday at work he had someone checked his pulse ox and it was noted to be 88% so he came to the emergency room for further evaluation. The patient was found to be in congestive heart failure and was started on IV Lasix. The patient does report that in April he went to the urgent care at [address] in [facility] due to shortness of breath and was transferred to [facility]. Patient did have an exacerbation of his congestive heart failure at that time. Patient reports he had stopped taking all of his medications as he was feeling well which led to his hospitalization. Patient does report having ICD implantation approximately 2 years ago. He reports a previous cardiac catheterization although unsure exactly when which did not reveal any blockages. He reports having a stroke approximately 3 years ago. He states that his dad also has a history of cardiomyopathy. He reports occasional alcohol use. He denies smoking cigarettes but does report occasional chewing tobacco. DIAGNOSTICS: - EKG reveals sinus mechanism with PVCs. - Chest xray possible small developing pneumonia in left lower lobe. Moderate cardiomegaly with single lead cardiac pacemaker -Chest CTA: Negative for pulmonary embolism. Cardiomegaly. New partially calcified 14 mm pleural-based nodular density in left lower lobe - Laboratory data: WBC 7.84. Hemoglobin 13.6. Platelet count 226. Sodium 134. Potassium 4.3. BUN 19. Creatinine 1.4. AST 497. ALT 976. proBNP 6630. - Current home cardiac medications include carvedilol 3.125 mg twice a day, spironolactone 25 mg every 2 days, Entresto 49-51 mg twice daily, Lasix 40 mg daily as needed, Lipitor 20 mg at night, Eliquis 5 mg twice a day. - Most recent echocardiogram obtained in 04/2022 10 to 15% with severe global hypokinesis, apical thrombus noted, moderate pulmonary hypertension, negative bubble study, mild mitral regurgitation, mild to moderate tricuspid regurgitation REVIEW OF SYSTEMS: At the time of my exam: CONSTITUTIONAL: Denies fever or chills. HEENT: Denies blurred vision, vision changes, or eye pain. Denies hemoptysis CARDIOVASCULAR: Denies chest pain. Denies orthopnea. Denies PND. Denies palpitations RESPIRATORY: Denies shortness of breath. GASTROINTESTINAL: Denies abdominal pain. Denies nausea or vomiting. HEMATOLOGIC: Denies bleeding disorders. GENITOURINARY: Denies any blood in urine. SKIN: Denies pruitis. Denies rash. PHYSICAL EXAM: VITAL SIGNS: Reviewed. GENERAL: Well-developed in no acute distress. HEENT: Head is normocephalic. Pupils are equal, round. Sclerae anicteric. Mucous membranes of the mouth are moist. Neck supple. No JVD or thyromegaly LUNGS: Respirations even and unlabored. Lungs essentially clear to auscultation bilaterally. HEART: Regular rate and rhythm. S1 and S2 heard. ABDOMEN: Soft. Nondistended. Nontender. EXTREMITIES: Deformity of bilateral hands. No clubbing or cyanosis. Peripheral pulses intact. Mild bilateral lower extremity edema NEUROLOGIC: Awake and alert. Oriented x 3. ASSESSMENT: Shortness of breath Acute on chronic heart failure with reduced EF, 10 to 15% History of familial dilated cardiomyopathy Transaminitis History of pulmonary embolism History of apical thrombus History of AICD implantation History of CVA History of deformity of bilateral hands, genetic per patient Occasional chewing tobacco use Occasional alcohol use PLAN: Obtain 2D echo to assess cardiac structure and function Continue IV Lasix 40 mg daily Daily weights, accurate intake and output, monitoring of kidney function Repeat BMP in a.m. Resume Entresto Patient has allergy to Farxiga Obtain records from patient's primary numerical control nesting operator Further recommendations pending patient course Nurse practitioner note has been reviewed by physician. Signing provider agrees with the documented findings, assessment, and plan of care documented by N[employer]ORMW[employer] LEADER as a scribe. Past Medical History Past Medical History: Pulmonary Embolus (PE) Additional Past Medical History / Comment(s): Gout , PE, cardiomyopathy left ventricle ejection fraction of around 15% and the patient has also on RV th rombus. History of Any Multi-Drug Resistant Organisms: None Reported Past Surgical History: No Surgical Hx Reported Additional Past Surgical History / Comment(s): hand surgery Past Anesthesia/Blood Transfusion Reactions: No Reported Reaction Past Psychological History: No Psychological Hx Reported Smoking Status: Vaper Past Alcohol Use History: Occasional Past Drug Use History: Marijuana - Past Family History Father Family Medical History: Pulmonary Embolus Medications and Allergies Home Medications Medication Instructions Recorded Confirmed Type Atorvastatin [Lipitor] 20 mg PO HS #90 tab 05/05/22 07/02/24 Rx Apixaban [Eliquis] 5 mg PO BID 07/02/24 07/02/24 History Folic Acid 1 mg PO DAILY 07/02/24 07/02/24 History Furosemide [Lasix] 40 mg PO DAILY PRN 07/02/24 07/02/24 History Sacubitril/Valsartan [Entresto 49 1 tab PO BID 07/02/24 07/02/24 History mg-51 mg Tablet] Spironolactone [Aldactone] 25 mg PO Q2D 07/02/24 07/02/24 History allopurinoL [Zyloprim] 300 mg PO DAILY 07/02/24 07/02/24 History carvediloL [Coreg] 3.125 mg PO BID-W/MEALS 07/02/24 07/02/24 History Allergies Allergy/AdvReac Type Severity Reaction Status Date / Time empagliflozin AdvReac Rash/Hives Verified 07/02/24 16:09 [From Jardiance] Physical Exam Vitals: Vital Signs Temp Pulse Pulse Resp BP BP Pulse Ox 07/03/24 08:35 92 07/03/24 08:00 97.7 F 58 L 16 120/78 100 07/03/24 02:17 98.0 F 96 16 98/71 100 07/02/24 23:23 98 F 93 14 115/87 96 07/02/24 18:18 87 16 98 07/02/24 16:53 90 16 107/80 99 07/02/24 15:15 93 18 106/93 98 07/02/24 12:10 98.4 F 112 H 20 110/88 98 Intake and Output 07/02/24 07/03/24 07/03/24 22:59 06:59 14:59 Intake Total 590 Balance 590 Intake: Oral 590 Other: Voiding Method Toilet # Voids 2 Weight 113.398 kg 112.2 kg Results 07/03/24 05:19 07/03/24 05:19 Cardiac Enzymes 07/02/24 07/03/24 Range/Units 12:50 05:19 AST 1000 H 497 H (17-59) U/L Coagulation 07/02/24 Range/Units 12:50 PT 18.4 H (10.0-12.5) sec APTT 23.3 (22.0-30.0) sec CBC 07/02/24 07/03/24 Range/Units 12:50 05:19 WBC 9.57 7.84 (4.50-10.00) 10*3/uL RBC 4.65 4.57 (4.40-5.60) 10*6/uL Hgb 14.2 13.6 (13.0-17.0) g/dL Hct 43.3 43.5 (39.6-50.0) % Plt Count 263 226 (140-440) 10*3/uL Comprehensive Metabolic Panel 07/02/24 07/03/24 Range/Units 12:50 05:19 Sodium 134 L 134 L (137-145) mmol/L Potassium 5.1 4.3 (3.5-5.1) mmol/L Chloride 104 100 (98-107) mmol/L Carbon Dioxide 22 23.3 (22-30) mmol/L BUN 20 19.5 (9-20) mg/dL Creatinine 1.41 H 1.4 (0.66-1.25) mg/dL Glucose 130 H 100 (74-99) mg/dL Calcium 9.8 9.0 (8.4-10.2) mg/dL Unconjugated Bilirubin 0.51 (0.20-1.00) mg/dL AST 1000 H 497 H (17-59) U/L ALT 1188 H 976 H (4-49) U/L Alkaline Phosphatase 75 83 (38-126) U/L Total Protein 6.3 5.7 L (6.3-8.2) g/dL Albumin 3.6 3.6 L (3.5-5.0) g/dL Current Medications Generic Name Dose Route Start Last Admin Trade Name Freq PRN Reason Stop Dose Admin Allopurinol 300 mg 07/03/24 09:00 07/03/24 08:36 Allopurinol 300 Mg Tab PO 300 mg DAILY JACE Administration Apixaban 5 mg 07/02/24 21:00 07/03/24 08:36 Apixaban 5 Mg Tab PO 5 mg BID JACE Administration Protocol Benzonatate 200 mg 07/03/24 05:04 Benzonatate 100 Mg Cap PO TID PRN Cough Carvedilol 3.125 mg 07/02/24 17:30 07/03/24 08:36 Carvedilol 3.125 Mg Tab PO 3.125 mg BID-W/MEALS JACE Administration Folic Acid 1 mg 07/03/24 09:00 07/03/24 08:36 Folic Acid 1 Mg Tab PO 1 mg DAILY JACE Administration Furosemide 40 mg 07/03/24 09:00 07/03/24 08:36 Furosemide 10 Mg/Ml 4 Ml Vial IV 40 mg DAILY JACE Administration Guaifenesin/Dextromethorphan 10 ml 07/03/24 05:04 07/03/24 09:36 Guaifenesin-Dm 100-10mg/5ml 10 Ml Cup PO 10 ml Q6HR PRN Administration Cough Naloxone HCl 0.2 mg 07/02/24 16:20 Naloxone 0.4 Mg/Ml 1 Ml Vial IV Q2M PRN Opioid Reversal Sacubitril/Valsartan 1 each 07/03/24 09:15 07/03/24 09:36 Sacubitril/Valsartan 24 Mg-26 Mg Tablet PO 1 each BID COUNTS INCLUDE 234 BEDS AT THE [facility] Administration Spironolactone 25 mg 07/04/24 09:00 Spironolactone 25 Mg Tab PO Q2D COUNTS INCLUDE 234 BEDS AT THE [facility] Intake and Output 07/02/24 07/03/24 07/03/24 22:59 06:59 14:59 Intake Total 590 Balance 590 Intake: Oral 590 Other: Voiding Method Toilet # Voids 2 Weight 113.398 kg 112.2 kg 07/03/24 05:19 07/03/24 05:19
--- NOTE | 2024-07-03 12:23 | CA ---
Transthoracic Echo Report Name: Aaron Guo Age: 38 Gender: M : 1985 Exam Date: 07/03/2024 08:57 Exam Location: [place] [facility] Ht (in): 75 Wt (lb): 250 Ordering Physician: Twyla Villegas MD Attending/Referring Phys: Chest Painting And Sealing Supervisor Roya Medeiros RDCS Procedure CPT: Indications: biventricular heart failure Cardiac Hx: Technical Quality: Fair Contrast 1: Definity Total Dose (mL): 2 Contrast 2: Total Dose (mL): MEASUREMENTS (Male / Female) Normal Values 2D ECHO LV Diastolic Diameter PLAX 7.3 cm 4.2 - 5.9 / 3.9 - 5.3 cm LV Systolic Diameter PLAX 7.3 cm IVS Diastolic Thickness 1.0 cm 0.6 - 1.0 / 0.6 - 0.9 cm LVPW Diastolic Thickness 1.0 cm 0.6 - 1.0 / 0.6 - 0.9 cm LV Relative Wall Thickness 0.3 RV Internal Dim ED PLAX 2.9 cm LA Systolic Diameter LX 5.5 cm 3.0 - 4.0 / 2.7 - 3.8 cm LA Volume 144.8 cm??? 18 - 58 / 22 - 52 cm??? LA Volume Index 58.5 cm???/m??? 16 - 28 cm???/m??? M-MODE Aortic Root Diameter MM 3.4 cm LA Systolic Diameter MM 5.3 cm LA Ao Ratio MM 1.6 AV Cusp Separation MM 2.3 cm DOPPLER MV Area PHT 3.0 cm??? Mitral E Point Velocity 126.9 cm/s Mitral A Point Velocity 54.0 cm/s Mitral E to A Ratio 2.3 MV Deceleration Time 253.1 ms TR Peak Velocity 262.5 cm/s TR Peak Gradient 27.6 mmHg Right Ventricular Systolic Press 47.2 mmHg FINDINGS Left Ventricle Left ventricular ejection fraction is estimated at 5-10 %. Severely increased left ventricular diastolic diameter. Left ventricular wall thickness normal. Severely reduced global left ventricular systolic function. Right Ventricle Mild right ventricular dilatation. Severely reduced right ventricular global systolic function. Moderate pulmonary hypertension. Right Atrium Mild right atrial dilatation. Catheter/pacemaker wire in the right atrial cavity. Left Atrium Severely increased left atrial diameter. Severely increased left atrial volume. Moderately increased left atrial area. Mitral Valve Structurally normal mitral valve. mild mitral regurgitation. No mitral stenosis. Aortic Valve Trileaflet aortic valve. No aortic valve stenosis or regurgitation. Tricuspid Valve Structurally normal tricuspid valve. Mild tricuspid regurgitation. No tricuspid stenosis. Pulmonic Valve Structurally normal pulmonic valve. Trace pulmonic regurgitation. No pulmonic stenosis. Pericardium No pericardial or pleural effusion. Aorta Normal size aortic root and proximal ascending aorta. CONCLUSIONS 1. Severe impairment in the left ventricular systolic function with global hypokinesis and dilatation of the left ventricle 2. Dilated right ventricle with global hypokinesis 3. Mild mitral and tricuspid regurgitation with moderate pulmonary hypertension Previewed by: Dr. Rayna Castro MD (Electronically Signed) Final Date: 03 July 2024 12:22
--- NOTE | 2024-07-03 16:54 | P.PN ---
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 Patient says that over the last several days he started to develop cough with minimal sputum production, worsening shortness of breath especially when lying flat. He has noticed some weight gain, reports his dry weight is 240 pounds whereas he is weighing in at 250 pounds as of his last check. 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 Otherwise he has been on guideline directed medical therapy along with ICD implantation for his known heart failure. Patient presents today at the request of his nurse due to ongoing symptoms of worsening shortness of breath. He denies fevers, chills, nausea, vomiting, chest pain, palpitations, muscle aches, bone aches, rashes, dysuria, dyschezia, numbness/weakness of extremities. In the emergency room, patient was afebrile, 110/88, heart rate 112, 98% on room air. CBC is unremarkable. Basic metabolic panel shows a creatinine of 1.41 with a baseline of 0.97. Liver function test show total bilirubin of 1.9, AST of 1000, ALT of 1188. Tylenol level is less than 10. Influenza A, B, RSV, COVID are negative. Coags show an INR of 1.8. D-dimer was 4.13. Chest x-ray demonstrates moderate cardiomegaly with increased vascularity, early infiltrate definitely in the left, and subtly in the right concerning for edema versus developing infection, this is personally interpreted by the admitting physician. CT angiography is limited by motion artifact, redemonstrates cardiomegaly, does not show any central or segmental acute pulmonary embolism but does show a new partially calcified 14 mm pleural-based nodular density in the left lower lobe, as well as hepatic steatosis, this is personally interpreted by the admitting physician. Liver ultrasound is unremarkable in the right upper quadrant. Case was discussed with the emergency room provider and decision was made to admit the patient to the hospital for further evaluation of abnormal liver enzymes with worsening shortness of breath. Subjective: Patient seen evaluated bedside. Patient has acute complaint of cramps in both his lower extremities. Pertinent positives and negatives as discussed above, a complete review of systems was performed and all other systems are negative. Vitals: Signs Reviewed Physical Exam: General: nontoxic, no distress, appears at stated age Derm: warm, dry, intact Head: atraumatic, normocephalic, symmetric Eyes: EOMI, anicteric sclera Mouth: no lip lesion, mucus membranes moist Cardiovascular: S1 S2 reg, no murmur, rubs, or gallops Lungs: CTA bilateral, no rhonchi, no rales, no accessory muscle use Abdominal: soft, non-tender to palpataion, no appreciable organomegaly Extremities: no gross muscle atrophy, no edema, no contractures Neuro: Alert, Oriented, CNII-XII grossly intact, gait normal Psych: well appearing, appropriate affect Data Received Today: Pertinent Labs: AST 497, ALT 476, BUN 19.5, creatinine 1.4 Imaging: Repeat echocardiogram displaying EF of 5-10%, severe impairment in the left ventricular systolic function with global hypokinesis and dilatation of left ventricle, dilated right ventricle global hypokinesis, mild PAH Assessment and Plan: Acute on chronic biventricular heart failure with reduced ejection fraction down 10 to 15% Congestive hepatopathy, improving Acute kidney injury - Admit patient as an inpatient with telemetry - Lasix 40 mg IV daily, monitor renal function - Strict ins and outs, daily weights - Repeat echocardiogram displaying EF of 5-10%, severe impairment in the left ventricular systolic function with global hypokinesis and dilatation of left ventricle, dilated right ventricle global hypokinesis, mild PAH - BNP added on - Cardiology consult appreciated - Continue guideline directed medical therapy as follows: Carvedilol, spironolactone; hold atorvastatin due to elevated liver enzymes, Entresto has been resumed by cardiology Bilateral lower extremity cramping Mag 1.6 2 bags of magnesium given Follow-up with mag New pleural-based nodule in the left lower lobe -Pulmonology note reviewed, will follow-up nodule outpatient - Defer antibiotics at this time -Procalcitonin unremarkable History of pulmonary embolism - Continue apixaban Pt is Full Code DVT PPx covered with Stephanie Whitfield MD PGY-1 IM Dictation was produced using [employer] dictation software. please excuse any grammatical, word or spelling errors. I saw and evaluated the patient during the ames and critical portions of this encounter, and discussed the case in detail with the resident author of this note, I agree with the Assessment and Plan, and my changes, if any, are highlighted in blue. Objective - Vital Signs Vital signs: Vital Signs Temp 98.0 F 07/03/24 02:17 Pulse 96 07/03/24 02:17 Resp 16 07/03/24 02:17 BP 98/71 07/03/24 02:17 Pulse Ox 100 07/03/24 02:17 FiO2 Intake & Output 07/02/24 07/03/24 07/03/24 18:59 06:59 18:59 Intake Total 590 Balance 590 Weight 113.398 kg 112.2 kg Intake: Oral 590 Other: Voiding Method Toilet # Voids 2 - Labs CBC & Chem 7: 07/03/24 05:19 07/03/24 05:19 Labs: Abnormal Lab Results - Last 24 Hours (Table) 07/02/24 07/02/24 07/02/24 Range/Units 12:50 12:50 12:50 Basophils # 0.12 H (0.00-0.10) 10*3/uL PT 18.4 H (10.0-12.5) sec INR 1.8 H (<1.2) D-Dimer 4.13 H (<0.60) mg/L FEU Sodium 134 L (137-145) mmol/L Creatinine 1.41 H (0.66-1.25) mg/dL Glucose 130 H (74-99) mg/dL Total Bilirubin 1.9 H (0.2-1.3) mg/dL AST 1000 H (17-59) U/L ALT 1188 H (4-49) U/L Ur Specific [place] (1.001-1.035) 07/02/24 Range/Units 17:49 Basophils # (0.00-0.10) 10*3/uL PT (10.0-12.5) sec INR (<1.2) D-Dimer (<0.60) mg/L FEU Sodium (137-145) mmol/L Creatinine (0.66-1.25) mg/dL Glucose (74-99) mg/dL Total Bilirubin (0.2-1.3) mg/dL AST (17-59) U/L ALT (4-49) U/L Ur Specific [place] 1.042 H (1.001-1.035)
[2024-07-03 19:15] VITALS: RESP 16
[2024-07-03] MEDS: SACUBITRIL/VALSARTAN 49 MG-51 MG TABLET PO SCH (20:13)
[2024-07-04 04:53] LABS: Basophils # (A) 0.06 10*3/uL (0.00-0.10); Basophils % (A) 0.9 %; Eosinophils # (A) 0.23 10*3/uL (0.04-0.35); Eosinophils % (A) 3.3 %; Lymphocytes # (A) 1.56 10*3/uL (0.90-5.00); Lymphocytes % (A) 22.6 %; MCHC 32.6 g/dL (32.0-37.0); MCV 92.3 fL (80.0-97.0); Mean Platelet Volume 10.6 fL (9.5-12.2); Monocytes # (A) 0.71 10*3/uL (0.20-1.00); Monocytes % (A) 10.3 %; Neutrophils # (A) 4.32 10*3/uL (1.80-7.70); Neutrophils % (A) 62.5 %; Platelet Count 240 10*3/uL (140-440); RBC 4.66 10*6/uL (4.40-5.60); RDW 15.2 % (11.5-14.5); WBC 6.91 10*3/uL (4.50-10.00)
[2024-07-04 05:12] LABS: African American GFR (CKD) 87 (>60 ml/min/1.73 sqM); Anion Gap 9 mmol/L; Blood Urea Nitrogen 24 mg/dL (9-20); Calcium 9.4 mg/dL (8.4-10.2); Carbon Dioxide 24 mmol/L (22-30); Chloride 100 mmol/L (98-107); Glucose 105 mg/dL (74-99); Magnesium 1.8 mg/dL (1.6-2.3); Non-African American GFR(CKD) 76 (>60 ml/min/1.73 sqM); Potassium 3.8 mmol/L (3.5-5.1); Sodium 133 mmol/L (137-145)
[2024-07-04 05:20] LABS: NT-Pro-B-Type Natriuretic Pept 2610 pg/mL
[2024-07-04 07:33] VITALS: BP 105/74; PULSE 83; TEMP 97.6
[2024-07-04] MEDS: SPIRONOLACTONE 25 MG TAB PO SCH (08:06)
--- NOTE | 2024-07-04 12:10 | P.PN ---
Subjective HISTORY OF PRESENT ILLNESS: This is a 38-year-old male with a past medical history significant for dilated cardiomyopathy, AICD implantation, CVA, pulmonary embolism, and intracardiac thrombus. Patient follows with a concrete polisher in [place], Dr. Sow. We have been asked to see the patient in consultation for heart failure. Patient examined at the bedside. Patient presented to the hospital with a chief complaint of shortness of breath. He states for the past week he has been coughing with sputum production. He states yesterday at work he had someone checked his pulse ox and it was noted to be 88% so he came to the emergency room for further evaluation. The patient was found to be in congestive heart failure and was started on IV Lasix. The patient does report that in April he went to the urgent care at [address] [facility] due to shortness of breath and was transferred to [facility]. Patient did have an exacerbation of his congestive heart failure at that time. Patient reports he had stopped taking all of his medications as he was feeling well which led to his hospitalization. Patient does report having ICD implantation approximately 2 years ago. He reports a previous cardiac catheterization although unsure exactly when which did not reveal any blockages. He reports having a stroke approximately 3 years ago. He states that his dad also has a history of cardiomyopathy. He reports occasional alcohol use. He denies smoking cigarettes but does report occasional chewing tobacco. DIAGNOSTICS: - EKG reveals sinus mechanism with PVCs. - Chest xray possible small developing pneumonia in left lower lobe. Moderate cardiomegaly with single lead cardiac pacemaker -Chest CTA: Negative for pulmonary embolism. Cardiomegaly. New partially calcified 14 mm pleural-based nodular density in left lower lobe - Laboratory data: WBC 7.84. Hemoglobin 13.6. Platelet count 226. Sodium 134. Potassium 4.3. BUN 19. Creatinine 1.4. AST 497. ALT 976. proBNP 6630. - Current home cardiac medications include carvedilol 3.125 mg twice a day, spironolactone 25 mg every 2 days, Entresto 49-51 mg twice daily, Lasix 40 mg daily as needed, Lipitor 20 mg at night, Eliquis 5 mg twice a day. - Most recent echocardiogram obtained in 04/2022 10 to 15% with severe global hypokinesis, apical thrombus noted, moderate pulmonary hypertension, negative bubble study, mild mitral regurgitation, mild to moderate tricuspid r egurgitation 07/04/2024 Patient examined this morning at the bedside. Patient currently denies chest pain or pressure. He denies shortness of breath. He remains on IV Lasix. BUN 24. Creatinine 1.22. proBNP 2610. Echocardiogram completed revealing ejection fraction 5 to 10%, moderate pulmonary hypertension, mild MR, mild TR. PHYSICAL EXAM: VITAL SIGNS: Reviewed. GENERAL: Well-developed in no acute distress. HEENT: Head is normocephalic. Pupils are equal, round. Sclerae anicteric. Mucous membranes of the mouth are moist. Neck supple. No JVD or thyromegaly LUNGS: Respirations even and unlabored. Lungs essentially clear to auscultation bilaterally. HEART: Regular rate and rhythm. S1 and S2 heard. ABDOMEN: Soft. Nondistended. Nontender. EXTREMITIES: Deformity of bilateral hands. No clubbing or cyanosis. Peripheral pulses intact. Mild bilateral lower extremity edema NEUROLOGIC: Awake and alert. Oriented x 3. ASSESSMENT: Shortness of breath Acute on chronic heart failure with reduced EF, 5 to 10% History of familial dilated cardiomyopathy Transaminitis History of pulmonary embolism History of apical thrombus History of AICD implantation History of CVA History of deformity of bilateral hands, genetic per patient Occasional chewing tobacco use Occasional alcohol use PLAN: 2D echo obtained and reviewed Continue IV Lasix 40 mg daily Daily weights, accurate intake and output, monitoring of kidney function Repeat BMP in a.m. Patient has allergy to Farxiga Awaiting records from patient's primary concrete polisher Further recommendations pending patient course Nurse practitioner note has been reviewed by physician. Signing provider agrees with the documented findings, assessment, and plan of care documented by BIOLOGY ADJUNCT INSTRUCTOR as a scribe. Objective - Vital Signs Vital signs: Vital Signs Temp 97.6 F 07/04/24 07:23 Pulse 83 07/04/24 07:23 Resp 16 07/04/24 07:23 BP 105/74 07/04/24 07:23 Pulse Ox 93 L 07/04/24 07:23 FiO2 Intake & Output 07/03/24 07/04/24 07/04/24 18:59 06:59 18:59 Intake Total 1520 Balance 1520 Weight 109.8 kg Intake: Oral 1520 Other: Voiding Method Toilet # Voids 3 3 - Labs CBC & Chem 7: 07/04/24 04:00 07/04/24 04:00 Labs: Abnormal Lab Results - Last 24 Hours (Table) 07/04/24 07/04/24 Range/Units 04:00 04:00 RDW 15.2 H (11.5-14.5) % Sodium 133 L (137-145) mmol/L BUN 24 H (9-20) mg/dL Glucose 105 H (74-99) mg/dL
--- NOTE | 2024-07-04 12:54 | P.DS ---
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 Patient says that over the last several days he started to develop cough with minimal sputum production, worsening shortness of breath especially when lying flat. He has noticed some weight gain, reports his dry weight is 240 pounds whereas he is weighing in at 250 pounds as of his last check. 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 Otherwise he has been on guideline directed medical therapy along with ICD implantation for his known heart failure. Patient presents today at the request of his nurse due to ongoing symptoms of worsening shortness of breath. He denies fevers, chills, nausea, vomiting, chest pain, palpitations, muscle aches, bone aches, rashes, dysuria, dyschezia, numbness/weakness of extremities. In the emergency room, patient was afebrile, 110/88, heart rate 112, 98% on room air. CBC is unremarkable. Basic metabolic panel shows a creatinine of 1.41 with a baseline of 0.97. Liver function test show total bilirubin of 1.9, AST of 1000, ALT of 1188. Tylenol level is less than 10. Influenza A, B, RSV, COVID are negative. Coags show an INR of 1.8. D-dimer was 4.13. Chest x-ray demonstrates moderate cardiomegaly with increased vascularity, early infiltrate definitely in the left, and subtly in the right concerning for edema versus developing infection, this is personally interpreted by the admitting physician. CT angiography is limited by motion artifact, redemonstrates cardiomegaly, does not show any central or segmental acute pulmonary embolism but does show a new partially calcified 14 mm pleural-based nodular density in the left lower lobe, as well as hepatic steatosis, this is personally interpreted by the admitting physician. Liver ultrasound is unremarkable in the right upper quadrant. Case was discussed with the emergency room provider and decision was made to admit the patient to the hospital for further evaluation of abnormal liver enzymes with worsening shortness of breath. While admitted, patient was diuresed with IV Lasix. Liver enzymes trending downward suggestive of congestive hepatopathy. Patient was seen by pulmonology and is to follow-up outpatient regarding pulmonary nodule. Echocardiogram gram showed EF of 5-10%, severe pulm in the left ventricular systolic function with global hypokinesis and dilatation of left ventricle, dilated right ventricle global hypokinesis, mild pulmonary hypertension. Seen and cleared from cardiology standpoint. He is to follow-up with his bobbin handler Dr. Sow in [place]. He is being discharged with oral Lasix. He is to follow-up with his PCP as well. Patient can be discharged home today. Vital signs reviewed and stable. Physical examination: Vital signs reviewed General: non toxic, no distress, appears at stated age, obese Derm: no unusual rashes/lesions, warm Head: atraumatic, normocephalic, symmetric Eyes: EOMI, anicteric sclera Mouth: no lip lesion, mucus membranes moist Cardiovascular: S1S2 reg, no murmur, positive dorsalis pedis pulse bilateral, no edema Lungs: CTA bilateral, no rhonchi, no rales, no accessory muscle use Abdominal: soft, nontender to palpation, no guarding Ext: muscle strength 5 out of 5 in all 4 extremities grossly, no gross muscle atrophy Neuro: CN II-XI grossly intact, no gross focal neuro deficits Psych: Alert, oriented to person, place, and time A total of greater than 30 minutes of time were spent preparing this complex discharge summary. Patient was discharge on July 04, 2024 at 11:10 AM. Lo Whitfield MD PGY-1 IM Dictation was produced using [employer] dictation software. please excuse any grammatical, word or spelling errors. I saw and evaluated the patient during the ames and critical portions of this encounter, and discussed the case in detail with the resident author of this note, I agree with the Assessment and Plan, and my changes, if any, are highlighted in blue. Expected date of discharge: 07/04/24 Attending physician: Twyla Villegas MD Consults: 04/20/25 16:49 Consult Physician Routine Consulting Provider: Oscar Villarreal Consult Reason/Comments: pleural based nodule, new Do you want consulting provider notified?: Yes Consult Physician Urgent Consulting Provider: Derrick Luu Consult Reason/Comments: biventriular hF Do you want consulting provider notified?: Yes Primary care physician: Jennifer Steinberg Patient Condition at Discharge: Fair Plan - Discharge Summary New Discharge Prescriptions: Continue Atorvastatin [Lipitor] 20 mg PO HS #90 tab Spironolactone [Aldactone] 25 mg PO Q2D Folic Acid 1 mg PO DAILY Sacubitril/Valsartan [Entresto 49 mg-51 mg Tablet] 1 tab PO BID Apixaban [Eliquis] 5 mg PO BID carvediloL [Coreg] 3.125 mg PO BID-W/MEALS allopurinoL [Zyloprim] 300 mg PO DAILY Changed Furosemide [Lasix] 40 mg PO DAILY #30 tab Discharge Medication List Atorvastatin [Lipitor] 20 mg PO HS #90 tab 05/05/22 [Rx] Apixaban [Eliquis] 5 mg PO BID 07/02/24 [History] Folic Acid 1 mg PO DAILY 07/02/24 [History] Sacubitril/Valsartan [Entresto 49 mg-51 mg Tablet] 1 tab PO BID 07/02/24 [History] Spironolactone [Aldactone] 25 mg PO Q2D 07/02/24 [History] allopurinoL [Zyloprim] 300 mg PO DAILY 07/02/24 [History] carvediloL [Coreg] 3.125 mg PO BID-W/MEALS 07/02/24 [History] Furosemide [Lasix] 40 mg PO DAILY #30 tab 07/04/24 [Rx] Follow up Appointment(s)/Referral(s): Jennifer Steinberg MD [Primary Care Provider] - 07/27/24 3:30 pm (this appointment was previously scheduled. ) Batsheva Avendano MD [STAFF PHYSICIAN] - 1 Week Patient Instructions/Handouts: Heart Failure (DC) Activity/Diet/Wound Care/Special Instructions: Follow up with PCP and cardiology. Discharge Disposition: HOME SELF-CARE
== END 2024-07-04 11:52 | disposition home or self-care (01) | DRG 292 ==
LOC: EC 12:09 → 5NMEDONC 16:34
PROVIDERS: ADMIT Internal Medicine; ATTEND Internal Medicine
DX: I50.23 Acute on chronic systolic (congestive) heart failure (principal); N17.9 Acute kidney failure, unspecified; K76.1 Chronic passive congestion of liver; E66.9 Obesity, unspecified; I50.82 Biventricular heart failure; K76.0 Fatty (change of) liver, not elsewhere classified; I49.3 Ventricular premature depolarization; Z68.31 Body mass index [BMI] 31.0-31.9, adult; Z86.711 Personal history of pulmonary embolism; Z79.01 Long term (current) use of anticoagulants; Z95.810 Presence of automatic (implantable) cardiac defibrillator; Z86.73 Personal history of transient ischemic attack (TIA), and cerebral infarction without residual deficits; Z88.8 Allergy status to other drugs, medicaments and biological substances; Z87.891 Personal history of nicotine dependence; Z79.899 Other long term (current) drug therapy; Z91.128 Patient's intentional underdosing of medication regimen for other reason
CPT/HCPCS: 36415; 71046; 71275; 76705; 80048; 80053; 80074; 80076; 80143; 81003; 82550; 83735; 83880; 84145; 85025; 85379; 85610; 85730; 87636; 93005; 93306; 96361; 96374; 99285